=== PATIENT | female | born 1985 | race Hispanic/Latino ===

== ENCOUNTER 2018-10-19 23:50 | Emergency (ER) | payer OTHER ==
[~2018-10-19] VITALS: Ht 152.4 cm; Wt 73.0 kg
--- OUTSIDE RECORDS SUMMARY | 2018-10-19 23:54 | XMS REPORT | Summary of Care ---
Author Organization Unknown Address Unknown Phone Unavailable Encounter Dates Location Diagnoses Discharge Providers Disposition 06/14/2013 [facility] 06/18/2013 [id number] [address] Reason for Visit VAGINAL BLEEDING Vital Signs 1 2 3 Most recent to oldest [Reference Range]: 152.4 cm (06/14/2013 12:53:00 [facility] Height 98.4 DegF (06/18/2013 13:00:00 [facility]) 98.3 DegF (06/18/2013 08:00:00 [facility]) 98.0 DegF (06/18/2013 04:17:00 [facility] Temperature Oral [96.4-99.1 DegF] 116 mmHg (06/18/2013 13:00:00 [facility] 113 mmHg (06/18/2013 08:00:00 [facility] 117 mmHg (06/18/2013 04:17:00 [facility] Systolic Blood Pressure [90-140 mmHg] 76 mmHg (06/18/2013 13:00:00 [facility] 72 mmHg (06/18/2013 08:00:00 [facility] 78 mmHg (06/18/2013 04:17:00 [facility] Diastolic Blood Pressure [60-90 mmHg] 14 BRMIN (06/18/2013 13:00:00 [facility] 14 BRMIN (06/18/2013 08:00:00 [facility]) 16 BRMIN (06/18/2013 04:17:00 [facility] Respiratory Rate [14-20 BRMIN] 68 bpm (06/18/2013 13:00:00 [facility] 65 bpm (06/18/2013 08:00:00 [facility] 70 bpm (06/18/2013 04:17:00 [facility] Peripheral Pulse Rate [60-100 bpm] 78.636 kg (06/14/2013 12:53:00 [facility]) Weight 33.86 m2 (06/14/2013 12:53:00 [facility]) Body Mass Index Problem List Condition Effective Dates Status Health Status Informant Bronchitis(Confirmed 02/13/2009 Resolved ) Flu(Confirmed) 03/2013 Resolved Vaginal 06/03/2013 - Resolved delivery(Confirmed) 06/03/2013 Allergies, Adverse Reactions, Alerts Status Substance Reaction Severity Active NKDA Medications Medication Instructions Start Date Stop Date Status acetaminophen 650 mg, 2 tab, Route: PO, Drug 06/15/2013 06/15/2013 Completed form: TAB, ONCALL, Dosing Weight 78.636, kg, PRN Blood Transfusion, Premed Blood Products. Not to exceed 4grams/24hrs., Priority: Routine, Start date: 06/15/13 12:54:00, Duration: 1 doses or times, Stop date: Limited # o... Do not exceed 4 gm/day. (Same as: Tylenol) diphenhydrAMINE 25 mg, 1 tab, Route: PO, Drug form: 06/15/2013 06/15/2013 Completed TAB, ONCALL, Dosing Weight 78.636, kg, PRN Blood Transfusion, Premed Blood Products, Priority: Routine, Start date: 06/15/13 12:55:00, Duration: 1 doses or times, Stop date: Limited # of times ferrous fumarate 324 324 mg=1 tab, PO, Daily, # 90 tab, 06/18/2013 Ordered mg oral tablet 0 Refill(s) Lactated Ringers IV, 500 ml/hr, ONCE, Start date: 06/14/2013 06/15/2013 Completed Injection IV 06/14/13 23:05:00, 500 ml Lactated Ringers IV 1,000 mL, Rate: 40 ml/hr, Infuse 06/17/2013 06/18/2013 Discontinued 1,000 mL over: 25 hr, Route: IV, Dosing Weight 78.636 kg, Total Volume: 1,000, Start date: 06/17/13 8:15:00, Duration: 30 day, Stop date: 07/17/13 8:14:00 Methergine 0.2 mg/mL 0.2 mg, Route: IM, ONCE, Dosing 06/14/2013 06/14/2013 Completed injectable solution Weight 78.636, kg, Start date: 06/14/13 16:00:00, Stop date: 06/14/13 16:00:00 Methergine 0.2 mg/mL 0.2 mg, 1 mL, Route: IM, Drug form: 06/16/2013 06/16/2013 Completed injectable solution INJ, ONCE, Dosing Weight 78.636, kg, Priority: NOW, Start date: 06/16/13 0:38:00, Stop date: 06/16/13 0:38:00 (Same as:Methergine) morphine Sulfate 2 mg, Route: IVP, Drug form: INJ, 06/14/2013 06/14/2013 Completed ONCE, Dosing Weight 78.636, kg, Priority: STAT, Start date: 06/14/13 16:11:00, Stop date: 06/14/13 16:11:00 morphine Sulfate 2 mg, 1 mL, Route: IVP, Drug form: 06/14/2013 06/18/2013 Discontinued INJ, Q3H, Dosing Weight 78.636, kg, PRN Pain Score 4-6, Start date: 06/14/13 16:38:00, Duration: 30 day, Stop date: 07/14/13 16:37:00 (Same as:MORPhine Sulfate) NS (Bolus) IV 1000 1,000 mL, Rate: 1,000 ml/hr, Infuse 06/14/2013 06/14/2013 Completed mL over: 1 hr, Route: IV, Dosing Weight 78.636 kg, Total Volume: 1,000, Priority: STAT, Start date: 06/14/13 16:10:00, Duration: 1 doses or times, Stop date: 06/14/13 17:09:00, Bolus Dose Bolus Dose NS (Bolus) IV 500 mL 500 mL, Rate: 500 ml/hr, Infuse 06/14/2013 06/15/2013 Completed over: 1 hr, Route: IV, Dosing Weight 78.636 kg, Total Volume: 500, Priority: STAT, Start date: 06/14/13 23:32:00, Duration: 1 doses or times, Stop date: 06/15/13 0:31:00, Bolus Dose Bolus Dose ondansetron 4 mg, 2 mL, Route: IVP, Drug form: 06/14/2013 06/18/2013 Discontinued INJ, Q8H, Dosing Weight 78.636, kg, PRN Nausea & Vomiting, Start date: 06/14/13 16:38:00, Duration: 30 day, Stop date: 07/14/13 16:37:00 (Same as: Zofran) Saline Flush 0.9% 5 ml, Route: IVP, Drug Form: INJ, 06/14/2013 06/18/2013 Discontinued Dosing Weight 78.636, kg, PRN, PRN Line Flush, Start date: 06/14/13 16:38:00, Duration: 30 day, Stop date: 07/14/13 16:37:00 (Same as: BD Posiflush) Sodium Chloride 0.9% 250 mL, Rate: call out clerk for use with 06/14/2013 06/15/2013 Completed (titrate) 250 mL blood product administration, Dosing Weight 78.636, kg, Route: IV, Total Volume: 250, Start Date: 06/14/13 18:53:00, Duration: 1 doses or times, Stop date: 06/15/13 18:52:00, Replace Every: 24 hr Sodium Chloride 0.9% 1,000 mL, Rate: 90 ml/hr, Infuse 06/14/2013 06/18/2013 Discontinued IV 1,000 mL over: 11.1 hr, Route: IV, Dosing Weight 78.636 kg, Total Volume: 1,000, Start date: 06/14/13 16:38:00, Duration: 30 day, Stop date: 07/14/13 16:37:00 Results BLOOD BANK RESULTS 1 2 3 Most recent to oldest [Reference Range]: O NEG *Unknown* ([facility]14[facility] O NEG *Unknown* (06/14/2013 14:06:[facility] ABO/Rh Positive 1 (06/14/2013 22:03:[facility] Positive 2 (06/14/2013 14:06:[facility] Antibody Scrn Anti-D *Unknown* (06/16/2013 00:59:[facility] Non-specific IgG Antibody *Unknown* (06/16/2013 00:59:[facility] Anti-D *Unknown* (06/15/2013 07:08:00 [facility]) AB Int Product available 3 (06/17/2013 09:12:[facility] Product available (06/17/2013 09:00:00 [facility]) Product available 4 (06/15/2013 12:46:00 [facility]) RBC product 1Result Comment: 06/14/2013 23:31 [id number] notified Yazmin Flavin 06/14/2013 23:30 jw 2Result Comment: 06/14/2013 16:03 [id number] "Significant Findings called to Zuleyka Mann_at 06/14/2013 16:03__by AN__.Read Anup woodall [place]." 3Result Comment: 06/17/2013 09:53 ASBHAVSA called to surg 4Result Comment: 06/15/2013 13:21 ASBHAVSA called to latoya ELECTROLYTES 1 2 3 Most recent to oldest [Reference Range]: 140 mEq/L (06/15/2013 07:08:00 [facility]) 135 mEq/L (06/14/2013 14:06:00 [facility]) Sodium Lvl [135-145 mEq/L] 3.8 mEq/L (06/15/2013 07:08:00 [facility]) 3.9 mEq/L (06/14/2013 14:06:00 [facility]) Potassium Lvl [3.5-5.1 mEq/L] 108 mEq/L (06/15/2013 07:08:00 [facility]) 103 mEq/L (06/14/2013 14:06:00 [facility]) Chloride Lvl [95-109 mEq/L] 24 mEq/L (06/15/2013 07:08:00 [facility]) 26 mEq/L (06/14/2013 14:06:00 [facility]) CO2 [24-32 mEq/L] 11.8 mEq/L (06/15/2013 07:08:00 [facility]) 9.9 mEq/L *LOW* (06/14/2013 14:06:00 [facility]) AGAP [10.0-20.0 mEq/L] CHEM PANEL 1 2 3 Most recent to oldest [Reference Range]: 0.5 mg/dL (06/15/2013 07:08:[facility] 0.5 mg/dL (06/14/2013 14:06:[facility] Creatinine Lvl [0.5-1.4 mg/dL] 135 mL/min/1.73m2 5 *NA* (06/15/2013 07:08:00 [facility]) 135 mL/min/1.73m2 6 *NA* (06/14/2013 14:06:[facility] eGFR 7 mg/dL (06/15/2013 07:08:00 [facility]) 8 mg/dL (06/14/2013 14:06:00 [facility]) BUN [7-22 mg/dL] 14 (06/15/2013 07:08:[facility] 16 (06/14/2013 14:06:00 [facility]) B/C Ratio [6-25] 97 mg/dL 7 (06/15/2013 07:08:[facility] 86 mg/dL 8 (06/14/2013 14:06:00 [facility]) Glucose Lvl [70-99 mg/dL] 5.7 g/dL *LOW* (06/15/2013 07:08:00 [facility]) 8.0 g/dL (06/14/2013 14:06:00 [facility]) Total Protein [6.4-8.4 g/dL] 2.1 g/dL *LOW* (06/15/2013 07:08:00 [facility]) 3.1 g/dL *LOW* (06/14/2013 14:06:00 [facility]) Albumin Lvl [3.5-5.0 g/dL] 3.6 g/dL (06/15/2013 07:08:00 [facility]) 4.9 g/dL *HI* (06/14/2013 14:06:00 [facility]) Globulin [2.0-4.0 g/dL] 0.6 *LOW* (06/15/2013 07:08:00 [facility]) 0.6 *LOW* (06/14/2013 14:06:00 [facility]) A/G Ratio [0.7-1.6] 7.9 mg/dL *LOW* (06/15/2013 07:08:[facility] 9.2 mg/dL (06/14/2013 14:06:00 [facility]) Calcium Lvl [8.5-10.5 mg/dL] 14 unit/L (06/15/2013 07:08:[facility] 25 unit/L (06/14/2013 14:06:00 [facility]) ALT [0-65 unit/L] 7 unit/L (06/15/2013 07:08:00 [facility]) 13 unit/L (06/14/2013 14:06:00 [facility]) AST [0-37 unit/L] 95 unit/L (06/15/2013 07:08:00 [facility]) 147 unit/L *HI* (06/14/2013 14:06:00 [facility]) Alk Phos [39-136 unit/L] 0.3 mg/dL (06/15/2013 07:08:00 [facility]) 0.2 mg/dL (06/14/2013 14:06:00 [facility]) Bili Total [0.2-1.3 mg/dL] 5Result Comment: The eGFR is calculated using the CKD-EPI formula. In most young, healthy individuals the eGFR will be >90 mL/min/1.73m2. The eGFR declines with age. An eGFR of 60-89 may be normal in some populations, particularly the elderly, for whom the CKD-EPI formula has not been extensively validated. Use of the eGFR is not recommended in the following populations: Individuals with unstable creatinine concentrations, including patients and those with serious co-morbid conditions. Patients with extremes in muscle mass or diet. The data above are obtained from the National Kid[employer] Disease Education Program ( NKDEP) which additionally recommends that when the eGFR is used in patients with extremes of body mass index for purposes of drug dosing, the eGFR should be mul tiplied by the estimated BMI. 6Result Comment: The eGFR is calculated using the CKD-EPI formula. In most young, healthy individuals the eGFR will be >90 mL/min/1.73m2. The eGFR declines with age. An eGFR of 60-89 may be normal in some populations, particularly the elderly, for whom the CKD-EPI formula has not been extensively validated. Use of the eGFR is not recommended in the following populations: Individuals with unstable creatinine concentrations, including patients and those with serious co-morbid conditions. Patients with extremes in muscle mass or diet. The data above are obtained from the National Kidney Disease Education Program ( NKDEP) which additionally recommends that when the eGFR is used in patients with extremes of body mass index for purposes of drug dosing, the eGFR should be mul tiplied by the estimated BMI. 7Interpretive Data: Adult reference range values reflect the clinical guidelines of the [place] [employer]. 8Interpretive Data: Adult reference range values reflect the clinical guidelines of the [place] [employer]. URINE CHEM 1 2 3 Most recent to oldest [Reference Range]: Positive *ABN* (06/14/2013 20:59:09 [facility] U Preg [Negative] URINE AND STOOL 1 2 3 Most recent to oldest [Reference Range]: Marked *ABN* (06/14/2013 20:59:09 [facility]) UA Turbidity [Clear] Red *NA* (06/14/2013 20:59:09 [facility]) UA Color 6.0 (06/14/2013 20:59:09 [facility]) UA pH [5.0-8.0] 1.027 (06/14/2013 20:59:09 [facility] UA Spec Grav [<=1.030] Negative mg/dL *NA* (06/14/2013 20:59:09 [facility] UA Glucose [Negative mg/dL] Large *ABN* (06/14/2013 20:59:09 [facility] UA Blood [Negative] 20 mg/dL *ABN* (06/14/2013 20:59:09 [facility] UA Ketones [Negative mg/dL] 100 mg/dL *ABN* (06/14/2013 20:59:09 [facility] UA Protein [Negative mg/dL] <=1.0 mg/dL *NA* (06/14/2013 20:59:09 [facility] UA Urobilinogen [0.1-1.0 mg/dL] Negative *NA* (06/14/2013 20:59:09 [facility] UA Bili [Negative] Negative (06/14/2013 20:59:09 [facility] UA Leuk Est [Negative] Negative (06/14/2013 20:59:09 [facility] UA Nitrite [Negative] 149 /HPF *HI* (06/14/2013 [facility]:59:[facility] UA WBC [0-5 /HPF] >182 /HPF *HI* (06/14/2013 [facility]:59:[facility] UA RBC [0-2 /HPF] None Seen *NA* (06/14/2013 20:59:09 [facility]) UA Sq Epi Few /LPF *NA* (06/14/2013 20:59:09 [facility]) UA Mucus [None Seen /LPF] HEMATOLOGY 1 2 3 Most recent to oldest [Reference Range]: 5.6 K/CMM (06/18/2013 06:30:00 [facility] 7.5 K/CMM (06/16/2013 12:19:00 [facility]) 9.2 K/CMM (06/16/2013 03:29:00 [facility]) WBC [3.7-10.4 K/CMM] 3.40 M/CMM *LOW* (06/18/2013 06:30:00 [facility]) 2.56 M/CMM *LOW* (06/16/2013 12:19:00 [facility]) 2.82 M/CMM *LOW* (06/16/2013 03:29:00 [facility]) RBC [4.20-5.40 M/CMM] 10.1 g/dL *LOW* (06/18/2013 06:30:00 [facility]) 7.5 g/dL *LOW* (06/16/2013 12:19:00 [facility]) 8.4 g/dL *LOW* (06/16/2013 03:29:00 [facility]) Hgb [12.0-16.0 g/dL] 28.8 % *LOW* (06/18/2013 06:30:00 [facility]) 21.8 % *LOW* (06/16/2013 12:19:00 [facility]) 24.2 % *LOW* (06/16/2013 03:29:00 [facility]) Hct [36.0-48.0 %] 84.8 fL (06/18/2013 06:30:00 [facility]) 85.3 fL (06/16/2013 12:19:00 [facility]) 85.8 fL (06/16/2013 03:29:00 [facility]) MCV [81.0-99.0 fL] 29.6 pg (06/18/2013 06:30:[facility] 29.5 pg (06/16/2013 12:19:[facility] 29.7 pg (06/16/2013 03:29:[facility] MCH [27.0-31.0 pg] 34.9 g/dL (06/18/2013 06:30:[facility] 34.5 g/dL (06/16/2013 12:19:[facility] 34.6 g/dL (06/16/2013 03:29:[facility] MCHC [32.0-36.0 g/dL] 15.4 % *HI* (06/18/2013 06:30:[facility] 15.5 % *HI* (06/16/2013 12:19:00 [facility]) 15.9 % *HI* (06/16/2013 03:29:00 [facility]) RDW [11.5-14.5 %] 340 K/CMM (06/18/2013 06:30:00 [facility] 404 K/CMM (06/16/2013 12:19:00 [facility]) 368 K/CMM (06/16/2013 03:29:00 [facility]) Platelet [133-450 K/CMM] 6.7 fL *LOW* (06/18/2013 [facility]:30:[facility] 6.4 fL *LOW* (06/16/2013 12:19:00 [facility]) 6.8 fL *LOW* (06/16/2013 03:29:00 [facility]) MPV [7.4-10.4 fL] 56.5 % (06/18/2013 06:30:[facility] 70.6 % (06/16/2013 12:19:[facility] 67.7 % (06/16/2013 03:29:[facility] Segs [45.0-75.0 %] 33.3 % (06/18/2013 06:30:[facility] 23.7 % (06/16/2013 [facility] 26.3 % (06/16/2013 03:29:00 [facility]) Lymphocytes [20.0-40.0 %] 5.2 % (06/18/2013 06:30:00 [facility] 4.2 % (06/16/2013 12:19:00 [facility] 4.3 % (06/16/2013 03:29:00 [facility] Monocytes [2.0-12.0 %] 3.9 % (06/18/2013 06:30:00 [facility] 1.1 % (06/16/2013 12:19:00 [facility] 1.2 % (06/16/2013 03:29:00 [facility] Eosinophils [0.0-4.0 %] 1.1 % *HI* (06/18/2013 06:30:00 [facility] 0.4 % (06/16/2013 12:19:00 [facility] 0.5 % (06/16/2013 03:29:00 [facility] Basophils [0.0-1.0 %] 3.1 K/CMM (06/18/2013 06:30:00 [facility] 5.3 K/CMM (06/16/2013 12:19:00 [facility] 6.2 K/CMM (06/16/2013 03:29:00 [facility] Segs-Bands # [1.5-8.1 K/CMM] 1.8 K/CMM (06/18/2013 06:30:00 [facility] 1.8 K/CMM (06/16/2013 12:19:00 [facility] 2.4 K/CMM (06/16/2013 03:29:00 [facility] Lymphocytes # [1.0-5.5 K/CMM] 0.3 K/CMM (06/18/2013 06:30:00 [facility] 0.3 K/CMM (06/16/2013 12:19:00 [facility] 0.4 K/CMM (06/16/2013 03:29:00 [facility] Monocytes # [0.0-0.8 K/CMM] 0.2 K/CMM (06/18/2013 06:30:00 [facility] 0.1 K/CMM (06/16/2013 12:19:00 [facility] 0.1 K/CMM (06/16/2013 [facility] Eosinophils # [0.0-0.5 K/CMM] 0.1 K/CMM (06/18/2013 06:30:00 [facility] 0.0 K/CMM (06/16/2013 [facility] 0.0 K/CMM (06/16/2013 03:29:00 [facility]) Basophils # [0.0-0.2 K/CMM] Medications Administered During Your Visit No data available for this section Immunizations No data available for this section Social History Social History Type Response Alcohol Type Wine. Frequency: 1-2 times per month. Smoking Status Use: Never smoker. Tobacco smoke exposure: None. Did the Patient Smoke Cigarettes Anytime During the Last 365 Days? No. Cessation Counseling Provided? No. Assessment and Plan Extracted from: Title: Discharge Summary * Author: Yohannes Steele Date: 06/18/2013 Discharge Plan Discharge Summary Plan Discharge Status: improved. Discharge instructions given: to patient. Discharge disposition: discharge to home. Prescriptions: written and given to patient. Course Improving. Education and Follow-up Counseled: patient, family. Extracted from: Title: Progress Note * Author: Yohannes Steele Date: 06/18/2013 Impression and Plan Course: Improving. Education and Follow-up: Counseled: Patient, Family. Discharge Planning: Plan to discharge ( To home ). Ready for D/C: Yes. Extracted from: Title: OB Admission H&P L&D/ PreOp Author: Yohannes Steele Date: 06/14/2013 * Impression and Plan Delayed post hemmorhage secondary to Retained products of contraception. Products evacuated successfully and pt stabilized. Pt with acute anaemia and low H&H and expected further drop based on presentation and history of bleeding prior to presentation. Blood transfusion ordered. Pt hemodynamically stable. Will admit for observation and transfusion.
--- OUTSIDE RECORDS SUMMARY | 2018-10-19 23:54 | XMS REPORT | Continuity of Care Document ---
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 forms of venous thrombosis are not ruled out. However,the melting curve analysis may implicate the presence of possible rare mutations at positions 1689, 1692 and 1696. (Further testing will be recommended in the report). A minimum detection level is 202 copies of Factor V Leiden per reaction. The level of agreement between the Factor V Leiden Kit and sequence analysis was 99.4%. The test result must be interpreted along with the patient's clinical history and relevant laboratory data. This assay has been validated by [facility]. 09/03/2017 [facility] Protein S Func 147 54 - 137 09/03/2017 [facility] Homocyst Tot 6.4 3.7 - 13.9 09/03/2017 [facility] Cardiolipin IgG 2.5 <=19.9 GPL 09/03/2017 [facility] Cardiolipin IgA 2.1 <=19.9 APL 09/03/2017 [facility] Cardiolipin IgM 6.2 <=19.9 MPL 09/03/2017 [facility] JERRY Negative (09/03/17 1:30 PM) Negative 09/03/2017 [facility] IMMUNOLOGY Beta2-Glycoprotein IgG 9.3 <=19.9 unit/mL 09/03/2017 [facility] IMMUNOLOGY Beta2-Glycoprotein IgA 0.8 <=19.9 unit/mL 09/03/2017 [facility] IMMUNOLOGY Beta2-Glycoprotein IgM 0.3 <=19.9 unit/mL 09/03/2017 [facility] SPECIAL CHEMISTRY Hgb A1C 5.4 <=5.6 % 09/03/2017 [facility] CARDIAC ENZYMES Troponin-I <0.02 0.00 - 0.40 09/03/2017 [facility] CARDIAC ENZYMES Total CK 154 12 - 191 09/03/2017 [facility] ELECTROLYTES AGAP 13.7 10.0 - 20.0 09/03/2017 [facility] ELECTROLYTES eGFR 129 09/03/2017 Result Comment: The eGFR is calculated using the [...] from the National Kidney Disease Education Program (NKDEP) which additionally recommends that when the eGFR is used in patients with extremes of body mass index for purposes of drug dosing, the eGFR should be multiplied by the estimated BMI. [facility] ELECTROLYTES Glucose Lvl 89 70 - 99 09/03/2017 [facility] ELECTROLYTES Sodium Lvl 140 135 - 145 09/03/2017 [facility] ELECTROLYTES BUN 9 7 - 22 09/03/2017 [facility] ELECTROLYTES Creatinine Lvl 0.51 0.50 - 1.40 09/03/2017 [facility] ELECTROLYTES CO2 26 24 - 32 09/03/2017 [facility] ELECTROLYTES Chloride Lvl 104 95 - 109 09/03/2017 [facility] ELECTROLYTES Potassium Lvl 3.7 3.5 - 5.1 09/03/2017 [facility] ELECTROLYTES Calcium Lvl 9.0 8.5 - 10.5 09/03/2017 [facility] HEMATOLOGY PTT 34.1 22.9 - 35.8 09/03/2017 [facility] HEMATOLOGY INR 1.03 0.85 - 1.17 09/03/2017 [facility] HEMATOLOGY PT 13.5 12.0 - 14.7 09/03/2017 [facility] MPV 9.1 7.4 - 10.4 09/03/2017 [facility] MCV 91.5 80.0 - 98.0 09/03/2017 [facility] RDW 12.9 11.5 - 14.5 09/03/2017 [facility] Platelet 296 133 - 450 09/03/2017 [facility] MCH 30.9 27.0 - 31.0 09/03/2017 [facility] MCHC 33.7 32.0 - 36.0 09/03/2017 [facility] Hct 42.0 36.0 - 48.0 09/03/2017 [facility] RBC 4.59 4.20 - 5.40 09/03/2017 [facility] Hgb 14.2 12.0 - 16.0 09/03/2017 [facility] WBC 5.4 3.7 - 10.4 09/03/2017 [facility] HEMATOLOGY Eosinophils 1.5 0.0 - 4.0 09/03/2017 [facility] HEMATOLOGY Basophils 1.4 0.0 - 1.0 09/03/2017 [facility] Lymphocytes 35.5 20.0 - 40.0 09/03/2017 [facility] Monocytes 6.7 2.0 - 12.0 09/03/2017 [facility] Segs-Bands # 3.0 1.5 - 8.1 09/03/2017 [facility] Segs 54.9 45.0 - 75.0 09/03/2017 [facility] Basophils # 0.1 0.0 - 0.2 09/03/2017 [facility] HEMATOLOGY Eosinophils # 0.1 0.0 - 0.5 09/03/2017 [facility] HEMATOLOGY Monocytes # 0.4 0.0 - 0.8 09/03/2017 [facility] Lymphocytes # 1.9 1.0 - 5.5 09/03/2017 [facility] URINE AND STOOL UA CaOx Lisa Few /HPF None Seen /HPF 08/04/2014 [facility] URINE AND STOOL UA Mucus Few /LPF None Seen /LPF 08/04/2014 [facility] URINE AND STOOL UA Bacteria Occasional /HPF None Seen /HPF 08/04/2014 [facility] URINE AND STOOL UA RBC 1 0 - 2 08/04/2014 [facility] URINE AND STOOL UA WBC 35 0 - 5 08/04/2014 [facility] URINE AND STOOL UA Sq Epi Many /LPF Few /LPF 08/04/2014 [facility] URINE AND STOOL UA Leuk Est Trace *ABN* (08/03/14 11:57 PM) Negative 08/04/2014 [facility] URINE AND STOOL UA Nitrite Negative (08/03/14 11:57 PM) Negative 08/04/2014 [facility] URINE AND STOOL UA pH 5.5 5.0 - 8.0 08/04/2014 [facility] URINE AND STOOL UA Protein 100 mg/dL Negative mg/dL 08/04/2014 [facility] URINE AND STOOL UA Turbidity Slight Cloudy (08/03/14 11:57 PM) Clear 08/04/2014 [facility] URINE AND STOOL UA Color Yellow *NA* (08/03/14 11:57 PM) Yellow 08/04/2014 [facility] URINE AND STOOL UA Spec Grav >=1.030 *ABN* (08/03/14 11:57 PM) <=1.030 08/04/2014 [facility] URINE AND STOOL UA Glucose Negative (08/03/14 11:57 PM) Negative 08/04/2014 [facility] URINE AND STOOL UA Bili Small *ABN* (08/03/14 11:57 PM) Negative 08/04/2014 [facility] URINE AND STOOL UA Urobilinogen 1.0 0.1 - 1.0 08/04/2014 [facility] URINE AND STOOL UA Blood Large *ABN* (08/03/14 11:57 PM) Negative 08/04/2014 [facility] URINE AND STOOL UA Ketones Trace *ABN* (08/03/14 11:57 PM) Negative 08/04/2014 [facility] URINE CHEM U Preg Negative (08/03/14 11:57 PM) Negative 08/04/2014 [facility] HEMATOLOGY RDW 15.4 11.5 - 14.5 06/18/2013 [facility] HEMATOLOGY Platelet 340 133 - 450 06/18/2013 [facility] HEMATOLOGY MPV 6.7 7.4 - 10.4 06/18/2013 [facility] HEMATOLOGY MCH 29.6 27.0 - 31.0 06/18/2013 [facility] HEMATOLOGY MCHC 34.9 32.0 - 36.0 06/18/2013 [facility] HEMATOLOGY MCV 84.8 81.0 - 99.0 06/18/2013 [facility] HEMATOLOGY RBC X 10x6 3.40 4.20 - 5.40 06/18/2013 [facility] Hgb 10.1 12.0 - 16.0 06/18/2013 [facility] HEMATOLOGY Hct 28.8 36.0 - 48.0 06/18/2013 [facility] WBC X 10x3 5.6 3.7 - 10.4 06/18/2013 [facility] HEMATOLOGY Basophils # 0.1 0.0 - 0.2 06/18/2013 [facility] HEMATOLOGY Eosinophils # 0.2 0.0 - 0.5 06/18/2013 [facility] HEMATOLOGY Monocytes # 0.3 0.0 - 0.8 06/18/2013 [facility] Lymphocytes # 1.8 1.0 - 5.5 06/18/2013 [facility] Segs-Bands # 3.1 1.5 - 8.1 06/18/2013 [facility] Basophils 1.1 0.0 - 1.0 06/18/2013 [facility] HEMATOLOGY Eosinophils 3.9 0.0 - 4.0 06/18/2013 [facility] Monocytes 5.2 2.0 - 12.0 06/18/2013 [facility] Lymphocytes 33.3 20.0 - 40.0 06/18/2013 [facility] Segs 56.5 45.0 - 75.0 06/18/2013 [facility] BLOOD BANK RESULTS RBC product Product available 3 (06/17/2013 09:12:00 Michelle/[place]) 06/17/2013 <sup>3</sup>Result Comment: 06/17/2013 09:53 HARESHA
called to surg [facility] BLOOD BANK RESULTS RBC product Product available (06/17/2013 09:00:00 Michelle/[place]) 06/17/2013 [facility] HEMATOLOGY Segs 70.6 45.0 - 75.0 06/16/2013 [facility] Basophils # 0.0 0.0 - 0.2 06/16/2013 [facility] Eosinophils # 0.1 0.0 - 0.5 06/16/2013 [facility] Monocytes # 0.3 0.0 - 0.8 06/16/2013 [facility] Lymphocytes # 1.8 1.0 - 5.5 06/16/2013 [facility] HEMATOLOGY Segs-Bands # 5.3 1.5 - 8.1 06/16/2013 [facility] HEMATOLOGY Basophils 0.4 0.0 - 1.0 06/16/2013 [facility] HEMATOLOGY Eosinophils 1.1 0.0 - 4.0 06/16/2013 [facility] HEMATOLOGY Lymphocytes 23.7 20.0 - 40.0 06/16/2013 [facility] HEMATOLOGY Monocytes 4.2 2.0 - 12.0 06/16/2013 [facility] HEMATOLOGY WBC X 10x3 7.5 3.7 - 10.4 06/16/2013 [facility] HEMATOLOGY MPV 6.4 7.4 - 10.4 06/16/2013 [facility] HEMATOLOGY Platelet 404 133 - 450 06/16/2013 [facility] HEMATOLOGY RDW 15.5 11.5 - 14.5 06/16/2013 [facility] HEMATOLOGY MCHC 34.5 32.0 - 36.0 06/16/2013 [facility] HEMATOLOGY MCH 29.5 27.0 - 31.0 06/16/2013 [facility] HEMATOLOGY MCV 85.3 81.0 - 99.0 06/16/2013 [facility] HEMATOLOGY Hct 21.8 36.0 - 48.0 06/16/2013 [facility] HEMATOLOGY Hgb 7.5 12.0 - 16.0 06/16/2013 [facility] HEMATOLOGY RBC X 10x6 2.56 4.20 - 5.40 06/16/2013 [facility] HEMATOLOGY Lymphocytes # 2.4 1.0 - 5.5 06/16/2013 [facility] HEMATOLOGY Segs-Bands # 6.2 1.5 - 8.1 06/16/2013 [facility] HEMATOLOGY Basophils # 0.0 0.0 - 0.2 06/16/2013 [facility] HEMATOLOGY Eosinophils # 0.1 0.0 - 0.5 06/16/2013 [facility] HEMATOLOGY Monocytes # 0.4 0.0 - 0.8 06/16/2013 [facility] HEMATOLOGY Basophils 0.5 0.0 - 1.0 06/16/2013 [facility] HEMATOLOGY Eosinophils 1.2 0.0 - 4.0 06/16/2013 [facility] HEMATOLOGY Monocytes 4.3 2.0 - 12.0 06/16/2013 [facility] HEMATOLOGY Lymphocytes 26.3 20.0 - 40.0 06/16/2013 [facility] HEMATOLOGY Segs 67.7 45.0 - 75.0 06/16/2013 [facility] HEMATOLOGY MCV 85.8 81.0 - 99.0 06/16/2013 [facility] HEMATOLOGY MCH 29.7 27.0 - 31.0 06/16/2013 [facility] HEMATOLOGY Hct 24.2 36.0 - 48.0 06/16/2013 [facility] HEMATOLOGY Platelet 368 133 - 450 06/16/2013 [facility] HEMATOLOGY RDW 15.9 11.5 - 14.5 06/16/2013 [facility] HEMATOLOGY MCHC 34.6 32.0 - 36.0 06/16/2013 [facility] HEMATOLOGY MPV 6.8 7.4 - 10.4 06/16/2013 [facility] HEMATOLOGY RBC X 10x6 2.82 4.20 - 5.40 06/16/2013 [facility] HEMATOLOGY Hgb 8.4 12.0 - 16.0 06/16/2013 [facility] HEMATOLOGY WBC X 10x3 9.2 3.7 - 10.4 06/16/2013 [facility] BLOOD BANK RESULTS AB Int Anti-D 06/16/2013 [facility] BLOOD BANK RESULTS AB Int Non-specific IgG Antibody 06/16/2013 [facility] BLOOD BANK RESULTS RBC product Product available 4 (06/15/2013 12:46:00 Michelle/[place]) 06/15/2013 <sup>4</sup>Result Comment: 06/15/2013 13:21 ASBHAVSA
called to latoya [facility] BLOOD BANK RESULTS AB Int Anti-D 06/15/2013 [facility] ELECTROLYTES AGAP 11.8 10.0 - 20.0 06/15/2013 [facility] ELECTROLYTES Calcium Lvl 7.9 8.5 - 10.5 06/15/2013 [facility] ELECTROLYTES CO2 24 24 - 32 06/15/2013 [facility] ELECTROLYTES B/C Ratio 14 6 - 25 06/15/2013 [facility] ELECTROLYTES ASPARTATE TRANSAMINASE 7 0 - 37 06/15/2013 [facility] ELECTROLYTES Bili Total 0.3 0.2 - 1.3 06/15/2013 [facility] ELECTROLYTES ALANINE AMINOTRANSFERASE 14 0 - 65 06/15/2013 [facility] ELECTROLYTES Alk Phos 95 39 - 136 06/15/2013 [facility] ELECTROLYTES A/G Ratio 0.6 0.7 - 1.6 06/15/2013 [facility] ELECTROLYTES Total Protein 5.7 6.4 - 8.4 06/15/2013 [facility] ELECTROLYTES Albumin Lvl 2.1 3.5 - 5.0 06/15/2013 [facility] ELECTROLYTES Globulin 3.6 2.0 - 4.0 06/15/2013 [facility] ELECTROLYTES Chloride Lvl 108 95 - 109 06/15/2013 [facility] ELECTROLYTES Potassium Lvl 3.8 3.5 - 5.1 06/15/2013 [facility] ELECTROLYTES Sodium Lvl 140 135 - 145 06/15/2013 [facility] ELECTROLYTES Creatinine Lvl 0.5 0.5 - 1.4 06/15/2013 [facility] ELECTROLYTES BUN 7 7 - 22 06/15/2013 [facility] ELECTROLYTES Glucose Lvl 97 70 - 99 06/15/2013 <sup>7</sup>Interpretive Data: Adult reference range values reflect the clinical guidelines
of the [place] [employer]. [facility] ELECTROLYTES eGFR 135 06/15/2013 <sup>5</sup>Result Comment: The eGFR is calculated using the CKD-EPI formula. In most young, healthy individuals the eGFR will be >90 mL/min/1.73m2. The eGFR declines with age. An eGFR of 60-89 may be normal in some populations, particularly the elderly, for whom the CKD-EPI formula has not been extensively validated. Use of the eGFR is not recommended in the following populations:& lt;br/>
Individuals with unstable creatinine concentrations, including patients and those with serious co-morbid conditions.

Patients with extremes in muscle mass or diet.

The data above are obtained from the National Kidney Disease Education Program (NKDEP) which additionally recommends that when the eGFR is used in patients with extremes of body mass index for purposes of drug dosing, the eGFR should be multiplied by the estimated BMI. [facility] BLOOD [facility] RESULTS Antibody Scrn Positive 1 (06/14/2013 22:03:00 Michelle/[place]) 06/15/2013 <sup>1</sup>Result Comment: 06/14/2013 23:31 [id number]
notified Yazmin Perez 06/14/2013 23:30 jw [facility] BLOOD BANK RESULTS ABO/Rh O NEG 06/15/2013 [facility] URINE AND STOOL UA Urobilinogen <=1.0 mg/dL 0.1 - 1.0 06/15/2013 [facility] URINE AND STOOL UA Color Red 06/15/2013 [facility] URINE AND STOOL UA Sq Epi None Seen 06/15/2013 [facility] URINE AND STOOL UA WBC 149 0 - 5 06/15/2013 [facility] URINE AND STOOL UA Leuk Est Negative (06/14/2013 20:59:09 Michelle/[place]) Negative 06/15/2013 [facility] URINE AND STOOL UA Mucus Few /LPF None Seen /LPF 06/15/2013 [facility] URINE AND STOOL UA RBC >182 0 - 2 06/15/2013 [facility] URINE AND STOOL UA Bili Negative *NA* (06/14/2013 20:59:09 Michelle/[place]) Negative 06/15/2013 [facility] URINE AND STOOL UA Spec Grav 1.027 <=1.030 06/15/2013 [facility] URINE AND STOOL UA Turbidity Marked *ABN* (06/14/2013 20:59:09 Michelle/[place]) Clear 06/15/2013 [facility] URINE AND STOOL UA Nitrite Negative (06/14/2013 20:59:09 Michelle/[place]) Negative 06/15/2013 [facility] URINE AND STOOL UA Blood Large *ABN* (06/14/2013 20:59:09 [facility]/[place]) Negative 06/15/2013 [facility] URINE AND STOOL UA pH 6.0 5.0 - 8.0 06/15/2013 [facility] URINE AND STOOL UA Ketones 20 mg/dL Negative mg/dL 06/15/2013 [facility] URINE AND STOOL UA Glucose Negative mg/dL Negative mg/dL 06/15/2013 [facility] URINE AND STOOL UA Protein 100 mg/dL Negative mg/dL 06/15/2013 [facility] URINE CHEM U Preg Positive *ABN* (06/14/2013 20:59:09 [facility]/[place]) Negative 06/15/2013 [facility] BLOOD [facility] RESULTS Antibody Scrn Positive 2 (06/14/2013 14:06:00 [facility]/[place]) 06/14/2013 <sup>2</sup>Result Comment: 06/14/2013 16:03 [id number]
"Significant Findings called to Zuleyka Mann_at 06/14/2013 16:03__by AN__.Read Back OK." [facility] BLOOD BANK RESULTS ABO/Rh O NEG 06/14/2013 [facility] CHEM PANEL eGFR 135 06/14/2013 <sup>6</sup>Result Comment: The eGFR is calculated using the CKD-EPI formula. In most young, healthy individuals the eGFR will be >90 mL/min/1.73m2. The eGFR declines with age. An eGFR of 60-89 may be normal in some populations, particularly the elderly, for whom the CKD-EPI formula has not been extensively validated. Use of the eGFR is not recommended in the following populations:& lt;br/>
Individuals with unstable creatinine concentrations, including patients and those with serious co-morbid conditions.

Patients with extremes in muscle mass or diet.

The data above are obtained from the National Kidney Disease Education Program (NKDEP) which additionally recommends that when the eGFR is used in patients with extremes of body mass index for purposes of drug dosing, the eGFR should be multiplied by the estimated BMI. [facility] CHEM PANEL ASPARTATE TRANSAMINASE 13 0 - 37 06/14/2013 [facility] CHEM PANEL Bili Total 0.2 0.2 - 1.3 06/14/2013 [facility] CHEM PANEL Sodium Lvl 135 135 - 145 06/14/2013 [facility] CHEM PANEL Potassium Lvl 3.9 3.5 - 5.1 06/14/2013 [facility] CHEM PANEL BUN 8 7 - 22 06/14/2013 [facility] CHEM PANEL Creatinine Lvl 0.5 0.5 - 1.4 06/14/2013 [facility] CHEM PANEL Calcium Lvl 9.2 8.5 - 10.5 06/14/2013 [facility] CHEM PANEL Total Protein 8.0 6.4 - 8.4 06/14/2013 [facility] CHEM PANEL CO2 26 24 - 32 06/14/2013 [facility] CHEM PANEL Chloride Lvl 103 95 - 109 06/14/2013 [facility] CHEM PANEL Alk Phos 147 39 - 136 06/14/2013 [facility] CHEM PANEL Albumin Lvl 3.1 3.5 - 5.0 06/14/2013 [facility] CHEM PANEL ALANINE AMINOTRANSFERASE 25 0 - 65 06/14/2013 [facility] CHEM PANEL Glucose Lvl 86 70 - 99 06/14/2013 <sup>8</sup>Interpretive Data: Adult reference range values reflect the clinical guidelines
of the [place] [employer]. [facility] CHEM PANEL Globulin 4.9 2.0 - 4.0 06/14/2013 [facility] CHEM PANEL B/C Ratio 16 6 - 25 06/14/2013 [facility] CHEM PANEL AGAP 9.9 10.0 - 20.0 06/14/2013 [facility] CHEM PANEL A/G Ratio 0.6 0.7 - 1.6 06/14/2013 [facility] BLOOD BANK RESULTS ABO/Rh O NEG 05/11/2013 [facility] BLOOD BANK RESULTS Antibody Scrn Positive (05/10/2013 20:26:00) 05/11/2013 Normal [facility] CHEM PANEL Creatinine Lvl 0.5 0.5 - 1.4 05/11/2013 Normal [facility] CHEM PANEL eGFR 135 05/11/2013 <sup>1</sup>Result Comment: The eGFR is calculated using the CKD-EPI formula. In most young, healthy individuals the eGFR will be >90 mL/min/1.73m2. The eGFR declines with age. An eGFR of 60-89 may be normal in some populations, particularly the elderly, for whom the CKD-EPI formula has not been extensively validated. Use of the eGFR is not recommended in the following populations:& lt;br/>
Individuals with unstable creatinine concentrations, including patients and those with serious co-morbid conditions.

Patients with extremes in muscle mass or diet.

The data above are obtained from the National Kidney Disease Education Program (NKDEP) which additionally recommends that when the eGFR is used in patients with extremes of body mass index for purposes of drug dosing, the eGFR should be multiplied by the estimated BMI. [facility] URINE CHEM U24 Cr Clear 144 88 - 128 05/10/2013 [facility] URINE CHEM WT Crcl 161 05/10/2013 [facility] URINE CHEM HT Crcl 62 05/10/2013 [facility] URINE CHEM TV CrCl 24H 2971 600 - 1600 05/10/2013 [facility] URINE CHEM BSA Cr Clear 1.74 05/10/2013 [facility] URINE CHEM Ur Creat 35.0 05/10/2013 <sup>5</sup>Interpretive Data: No established reference ranges. [facility] URINE CHEM Ur Protein 14.3 <=11.8 05/10/2013 [facility] URINE CHEM U Prot 24Hrs Col 24 (05/09/2013 18:49:00) 05/10/2013 Normal [facility] URINE CHEM U24 Protein 425 <=148 05/10/2013 [facility] <sup>3</sup>Interpretive Data: Reference value applies to 24-hour collection. Specimens collected for periods other than 24 hours will be reported in concentration units. Urinary protein levels may rise to 300 mg/24 hours in healthy individuals after vigorous exercise. Increased urine protein levels (false-positives) may be due to contamination of urine with menstrual blood, prostratic secretions, or semen. [facility] URINE CHEM TV Protein (ml) 2971 600 - 1600 05/10/2013 [facility] URINE CHEM Ur Protein 28.4 <=11.8 05/08/2013 [facility] URINE CHEM U Prot 24Hrs Col 24 (05/07/2013 22:30:00) 05/08/2013 Normal [facility] URINE CHEM U24 Protein 760 <=148 05/08/2013 [place] <sup>4</sup>Interpretive Data: Reference value applies to 24-hour collection. Specimens collected for periods other than 24 hours will be reported in concentration units. Urinary protein levels may rise to 300 mg/24 hours in healthy individuals after vigorous exercise. Increased urine protein levels (false-positives) may be due to contamination of urine with menstrual blood, prostratic secretions, or semen. [facility] URINE CHEM TV Protein (ml) 2676 600 - 1600 05/08/2013 [facility] URINE CHEM Ur Creat 35.7 05/08/2013 <sup>6</sup>Interpretive Data: No established reference ranges. [facility] URINE CHEM TV CrCl 24H 2676 600 - 1600 05/08/2013 [facility] URINE CHEM U24 Cr Clear 119 88 - 128 05/08/2013 Normal [facility] URINE CHEM BSA Cr Clear 2.41 05/08/2013 [facility] URINE CHEM WT Crcl 73 05/08/2013 [facility] URINE CHEM HT Crcl 155 05/08/2013 [facility] HEMATOLOGY PROTIME 12.1 12.0 - 14.7 05/07/2013 Normal [facility] HEMATOLOGY INR 0.90 0.85 - 1.17 05/07/2013 Normal <sup>8</sup>Interpretive Data: RECOMMENDED RANGES FOR PROTIME INR:
2.0-3.0 for most medical and surgical thromboembolic states.
2.5-3.5 for artificial heart valves and recurrent embolism.

INR SHOULD BE USED ONLY FOR PATIENTS ON STABLE ANTICOAGULANT THERAPY. [facility] HEMATOLOGY aPTT 24.1 22.9 - 35.8 05/07/2013 Normal <sup>10</sup>Interpretive Data: Heparin Therapeutic Range: 57 - 92 Seconds [facility] HEMATOLOGY Thrombin Time 14.9 15.0 - 21.2 05/07/2013 LOW [facility] HEMATOLOGY D-Dimer 1.29 05/07/2013 <sup>9</sup>Interpretive Data: In DIC, quantitative D-Dimer is generally greater than
0.66 ug/mL FEU. Values of quantitative D-Dimer less than
0.40 ug/mL FEU have been reported to be associated with a low
probability of deep vein thrombosis/pulmonary embolism.
This test alone should not be used to rule out DVT/PE. [facility] HEMATOLOGY Fibrinogen Lvl 590 230 - 510 05/07/2013 [facility] BLOOD BANK RESULTS Path AB This 27-year-old woman whose blood type is A Rh-negative received Rh Immune Globulin at 28 weeks (patient currently at 33 weeks) for prophylaxis of hemolytic disease of the fetus/ (HDF/N). Current immunohematologic testing shows the presence of an anti-D reactivity in this her plasma. The autocontrol is negative. The anti-D antibody is directed against the D antigen of the "Rh" blood group system and is typically IgG in nature. Although usually considered clinically significant, the anti-D reactivity detected in the plasma of this woman is due to passive immunization with Rh Immune Globulin. Should RBC transfusion be required, Rh-negative crossmatch-compatible units will be issued. No difficulty in obtaining compatible blood is expected. The patient’s electronic medical record has been reviewed for relevant information. I have reviewed the test results and concur with the resident's interpretation. CPT: 54436-MO 05/07/2013 [facility] BLOOD BANK RESULTS Antibody Scrn Positive 7 (05/06/2013 22:40:00) 05/07/2013 Normal <sup>7</sup>Result Comment: 05/07/2013 00:19 [id number]
"Significant Findings called to José MACKEY at 0018 by KEVIN.Read Back OK."

05/07/2013 00:16 [id number]
Patient has unexpected antibodies. Allow extra time for additional crossmatches. [facility] BLOOD BANK RESULTS ABO/Rh O NEG 05/07/2013 [facility] BLOOD BANK RESULTS AB Int Anti-D 05/07/2013 [facility] CHEM PANEL LACTATE DEHYDROGENASE 284 98 - 192 05/07/2013 HI [facility] CHEM PANEL Uric Acid 3.5 2.5 - 7.0 05/07/2013 Normal [facility] CHEM PANEL eGFR 145 05/07/2013 <sup>2</sup>Result Comment: The eGFR is calculated using the CKD-EPI formula. In most young, healthy individuals the eGFR will be >90 mL/min/1.73m2. The eGFR declines with age. An eGFR of 60-89 may be normal in some populations, particularly the elderly, for whom the CKD-EPI formula has not been extensively validated. Use of the eGFR is not recommended in the following populations:& lt;br/>
Individuals with unstable creatinine concentrations, including patients and those with serious co-morbid conditions.

Patients with extremes in muscle mass or diet.

The data above are obtained from the National Kidney Disease Education Program (NKDEP) which additionally recommends that when the eGFR is used in patients with extremes of body mass index for purposes of drug dosing, the eGFR should be multiplied by the estimated BMI. [facility] CHEM PANEL Creatinine Lvl 0.4 0.5 - 1.4 05/07/2013 LOW [facility] CHEM PANEL ALANINE AMINOTRANSFERASE 34 0 - 65 05/07/2013 Normal [facility] CHEM PANEL ASPARTATE TRANSAMINASE 33 0 - 37 05/07/2013 Normal [facility] HEMATOLOGY Monocytes # 0.5 0.0 - 0.8 05/07/2013 Normal [facility] HEMATOLOGY Lymphocytes # 2.5 1.0 - 5.5 05/07/2013 Normal [facility] HEMATOLOGY Segs-Bands # 5.4 1.5 - 8.1 05/07/2013 Normal [facility] HEMATOLOGY Basophils 0.4 0.0 - 1.0 05/07/2013 Normal [facility] HEMATOLOGY Eosinophils 0.7 0.0 - 4.0 05/07/2013 Normal [facility] HEMATOLOGY Eosinophils # 0.1 0.0 - 0.5 05/07/2013 Normal [facility] HEMATOLOGY Segs 63.2 45.0 - 75.0 05/07/2013 Normal [facility] HEMATOLOGY Monocytes 6.1 2.0 - 12.0 05/07/2013 Normal [facility] HEMATOLOGY Lymphocytes 29.6 20.0 - 40.0 05/07/2013 Normal [facility] HEMATOLOGY Platelet 270 133 - 450 05/07/2013 Normal [facility] HEMATOLOGY MCHC 33.3 32.0 - 36.0 05/07/2013 Normal [facility] HEMATOLOGY RDW 14.6 11.5 - 14.5 05/07/2013 HI [facility] HEMATOLOGY MCV 87.6 81.0 - 99.0 05/07/2013 Normal [facility] HEMATOLOGY MCH 29.2 27.0 - 31.0 05/07/2013 Normal [facility] HEMATOLOGY Hgb 12.3 12.0 - 16.0 05/07/2013 Normal [facility] HEMATOLOGY Hct 37.0 36.0 - 48.0 05/07/2013 Normal [facility] HEMATOLOGY MPV 8.9 7.4 - 10.4 05/07/2013 Normal [facility] HEMATOLOGY RBC X 10x6 4.22 4.20 - 5.40 05/07/2013 Normal [facility] HEMATOLOGY WBC X 10x3 8.5 3.7 - 10.4 05/07/2013 Normal [facility] IMMUNOLOGY Hep Bs Ag Negative *NA* (05/06/2013 22:08:44) Negative 05/07/2013 [facility] URINE AND STOOL UA Bili Negative *NA* (05/06/2013 22:08:05) Negative 05/07/2013 [facility] URINE AND STOOL UA Blood Negative (05/06/2013 22:08:05) Negative 05/07/2013 Normal [facility] URINE AND STOOL UA Nitrite Negative (05/06/2013 22:08:05) Negative 05/07/2013 [facility] URINE AND STOOL UA Turbidity Slight *ABN* (05/06/2013 22:08:05) Clear 05/07/2013 [facility] URINE AND STOOL UA Protein Negative mg/dL Negative 05/07/2013 Normal [facility] URINE AND STOOL UA Glucose Negative mg/dL Negative 05/07/2013 [facility] URINE AND STOOL UA Bacteria Moderate /HPF None Seen 05/07/2013 [facility] URINE AND STOOL UA Mucus Few /LPF None Seen 05/07/2013 [facility] URINE AND STOOL UA WBC 1 0 - 5 05/07/2013 Normal [facility] URINE AND STOOL UA Sq Epi Moderate /LPF Few 05/07/2013 ABN [facility] URINE AND STOOL UA Leuk Est Negative (05/06/2013 22:08:05) Negative 05/07/2013 Normal [facility] URINE AND STOOL UA Ketones TR 05/07/2013 [facility] URINE AND STOOL UA Urobilinogen <=1.0 mg/dL 0.1 - 1.0 05/07/2013 [facility] URINE AND STOOL UA Spec Grav 1.011 <=1.030 05/07/2013 Normal [facility] URINE AND STOOL UA pH 6.5 5.0 - 8.0 05/07/2013 Normal [facility] URINE AND STOOL UA Color Yellow *NA* (05/06/2013 22:08:05) Yellow 05/07/2013 [facility] IMMUNOLOGY HIV. Negative *NA* (05/06/2013 22:08:00) Negative 05/07/2013 [facility] IMMUNOLOGY RPR Non Reactive (05/06/2013 22:08:00) Non Reactive 05/07/2013 Normal [facility] CHEMISTRY Lactic Acid Lvl 0.8 0.5 - 2.2 02/12/2013 Normal [facility] VIRAL - SEROLOGY Influ A Positive 1 *ABN* (02/12/2013 11:01:24) Negative 02/12/2013 ABN <sup>1</sup>Result Comment: "Significant Findings called to Marilyn CARRat 02/12/2013 11:22 __by ab__.Read Back OK." [facility] VIRAL - SEROLOGY Influ B Negative 2 (02/12/2013 11:01:24) Negative 02/12/2013 Normal <sup>2</sup>Interpretive Data: Influenza A&B Antigen:
Due to the low sensitivity of this test a negative result does not exclude influenza virus infection. A diagnosis of influenza should be considered based on a patient's clinical presentation and empiric antiviral treatment should be considered, if indicated. If more conclusive testing is desired, follow-up confirmatory testing with either viral culture or PCR is warranted. [facility] HEMATOLOGY Basophils # 0.0 0.0 - 0.2 02/12/2013 Normal [facility] HEMATOLOGY Eosinophils # 0.0 0.0 - 0.5 02/12/2013 Normal [facility] HEMATOLOGY Monocytes # 0.4 0.0 - 0.8 02/12/2013 Normal [facility] HEMATOLOGY Segs-Bands # 5.4 1.5 - 8.1 02/12/2013 Normal [facility] HEMATOLOGY Lymphocytes # 0.9 1.0 - 5.5 02/12/2013 LOW [facility] HEMATOLOGY Basophils 0.1 0.0 - 1.0 02/12/2013 Normal [facility] HEMATOLOGY Eosinophils 0.0 0.0 - 4.0 02/12/2013 Normal [facility] HEMATOLOGY Monocytes 6.5 2.0 - 12.0 02/12/2013 Normal [facility] HEMATOLOGY Lymphocytes 13.7 20.0 - 40.0 02/12/2013 [facility] HEMATOLOGY Segs 79.7 45.0 - 75.0 02/12/2013 [facility] HEMATOLOGY MCH 31.6 27.0 - 31.0 02/12/2013 [facility] HEMATOLOGY MCV 92.9 81.0 - 99.0 02/12/2013 Normal [facility] HEMATOLOGY Hct 32.5 36.0 - 48.0 02/12/2013 [facility] HEMATOLOGY Hgb 11.0 12.0 - 16.0 02/12/2013 LOW [facility] HEMATOLOGY Platelet 240 133 - 450 02/12/2013 Normal [facility] HEMATOLOGY RDW 13.1 11.5 - 14.5 02/12/2013 Normal [facility] HEMATOLOGY MPV 7.6 7.4 - 10.4 02/12/2013 Normal [facility] HEMATOLOGY MCHC 34.0 32.0 - 36.0 02/12/2013 Normal [facility] HEMATOLOGY WBC X 10x3 6.7 3.7 - 10.4 02/12/2013 Normal [facility] HEMATOLOGY RBC X 10x6 3.49 4.20 - 5.40 02/12/2013 [facility] CHEMISTRY eGFR 145 02/12/2013 <sup>3</sup>Result Comment: The eGFR is calculated using the CKD-EPI formula. In most young, healthy individuals the eGFR will be >90 mL/min/1.73m2. The eGFR declines with age. An eGFR of 60-89 may be normal in some populations, particularly the elderly, for whom the CKD-EPI formula has not been extensively validated. Use of the eGFR is not recommended in the following populations:& lt;br/>
Individuals with unstable creatinine concentrations, including patients and those with serious co-morbid conditions.

Patients with extremes in muscle mass or diet.

The data above are obtained from the National Kidney Disease Education Program (NKDEP) which additionally recommends that when the eGFR is used in patients with extremes of body mass index for purposes of drug dosing, the eGFR should be multiplied by the estimated BMI. [facility] CHEMISTRY CO2 24 24 - 32 02/12/2013 Normal [facility] CHEMISTRY Calcium Lvl 8.8 8.5 - 10.5 02/12/2013 Normal [facility] CHEMISTRY Sodium Lvl 138 135 - 145 02/12/2013 Normal [facility] CHEMISTRY Potassium Lvl 3.5 3.5 - 5.1 02/12/2013 Normal [facility] CHEMISTRY Chloride Lvl 104 95 - 109 02/12/2013 Normal [facility] CHEMISTRY Glucose Lvl 93 70 - 99 02/12/2013 Normal <sup>4</sup>Interpretive Data: Adult reference range values reflect the clinical guidelines
of the [place] [employer]. [facility] CHEMISTRY Creatinine Lvl 0.4 0.5 - 1.4 02/12/2013 LOW [facility] CHEMISTRY BUN 4 7 - 22 02/12/2013 LOW [facility] CHEMISTRY AGAP 13.5 10.0 - 20.0 02/12/2013 Normal [facility] HEMATOLOGY Platelet see note 133 - 450 02/12/2013 [facility] HEMATOLOGY MPV * 7.4 - 10.4 02/12/2013 [facility] HEMATOLOGY RDW * 11.5 - 14.5 02/12/2013 [facility] HEMATOLOGY MCV * 81.0 - 99.0 02/12/2013 [facility] HEMATOLOGY Hct * 36.0 - 48.0 02/12/2013 [facility] HEMATOLOGY MCHC * 32.0 - 36.0 02/12/2013 [facility] HEMATOLOGY MCH * 27.0 - 31.0 02/12/2013 [facility] HEMATOLOGY RBC X 10x6 * 4.20 - 5.40 02/12/2013 [facility] HEMATOLOGY Hgb * 12.0 - 16.0 02/12/2013 [facility] HEMATOLOGY WBC X 10x3 see note* 3.7 - 10.4 02/12/2013 <sup>5</sup>Result Comment: specimen clotted. notified kathe bassett@ 02/12/2013 10:14 by bushra [facility] URINALYSIS UA Urobilinogen <=1.0 mg/dL 0.1 - 1.0 02/12/2013 [facility] URINALYSIS UA pH 7.0 5.0 - 8.0 02/12/2013 Normal [facility] URINALYSIS UA Protein Negative mg/dL Negative 02/12/2013 Normal [facility] URINALYSIS UA Color Yellow *NA* (02/12/2013 06:17:38) Yellow 02/12/2013 [facility] URINALYSIS UA Turbidity Clear (02/12/2013 06:17:38) Clear 02/12/2013 Normal [facility] URINALYSIS UA Spec Grav 1.013 <=1.030 02/12/2013 Normal [facility] URINALYSIS UA Blood Negative (02/12/2013 06:17:38) Negative 02/12/2013 Normal [facility] URINALYSIS UA Nitrite Negative (02/12/2013 06:17:38) Negative 02/12/2013 Normal [facility] URINALYSIS UA Glucose Negative mg/dL Negative 02/12/2013 [facility] URINALYSIS UA Ketones 20 mg/dL Negative 02/12/2013 ABN [facility] URINALYSIS UA Bili Negative *NA* (02/12/2013 06:17:38) Negative 02/12/2013 [facility] URINALYSIS UA Bacteria Moderate /HPF None Seen 02/12/2013 ABN [facility] URINALYSIS UA Leuk Est Negative (02/12/2013 06:17:38) Negative 02/12/2013 Normal [facility] URINALYSIS UA Sq Epi Occasional /LPF Few 02/12/2013 [facility] URINALYSIS UA WBC 1 0 - 5 02/12/2013 Normal [facility] URINALYSIS UA RBC <1 0 - 2 02/12/2013 Normal [facility] URINALYSIS UA Mucus Few /LPF None Seen 02/12/2013 [facility] BLOOD BANK RESULTS Rhig Product available 1 (10/26/2012 14:10:00) 10/26/2012 Normal <sup>1</sup>Result Comment: 10/26/2012 14:55 DENNIS
Called to Loyda at 10/26/2012 14:55. [facility] BLOOD BANK RESULTS ABO/Rh O NEG 10/26/2012 Unknown [facility] BLOOD BANK RESULTS Antibody Scrn Negative (10/26/2012 11:52:00) 10/26/2012 Normal [facility] [place]MISTR[place] [id number] 10/26/2012 NA <sup>4</sup>Interpretive Data: Reference Range:
Male 0 - 5 mIU/mL
Non- Female 0 - 5 mIU/mL

Note: hCG result should be used in conjunction with symptoms, results
of other tests, and clinical impressions.

Weeks of Gestation hCG (mIU/mL)

3 6 - 71
4 10-750
5 217 - 7,138
6 158 -31,795
7 3,697 - 163,563
8 32,065 - 149,571
9 63,803 - 151,410
10 46,506 - 186,977
11 27,832 - 210,612
14 13,950 - 62,530
15 12,039 - 70,971
16 9,040 - 56,451
17 8,175 - 55,868
18 8,099 - 58,176 [facility] CHEMISTRY eGFR 135 10/26/2012 NA <sup>2</sup>Result Comment: The eGFR is calculated using the CKD-EPI formula. In most young, healthy individuals the eGFR will be >90 mL/min/1.73m2. The eGFR declines with age. An eGFR of 60-89 may be normal in some populations, particularly the elderly, for whom the CKD-EPI formula has not been extensively validated. Use of the eGFR is not recommended in the following populations:& lt;br/>
Individuals with unstable creatinine concentrations, including patients and those with serious co-morbid conditions.

Patients with extremes in muscle mass or diet.

The data above are obtained from the National Kidney Disease Education Program (NKDEP) which additionally recommends that when the eGFR is used in patients with extremes of body mass index for purposes of drug dosing, the eGFR should be multiplied by the estimated BMI. [facility] CHEMISTRY Calcium Lvl 8.8 8.5 - 10.5 10/26/2012 Normal [facility] CHEMISTRY CO2 25 24 - 32 10/26/2012 Normal [facility] CHEMISTRY Creatinine Lvl 0.5 0.5 - 1.4 10/26/2012 Normal [facility] CHEMISTRY BUN 8 7 - 22 10/26/2012 Normal [facility] CHEMISTRY Glucose Lvl 95 70 - 99 10/26/2012 Normal <sup>3</sup>Interpretive Data: Adult reference range values reflect the clinical guidelines
of the [place] [employer]. [facility] CHEMISTRY Potassium Lvl 3.8 3.5 - 5.1 10/26/2012 Normal [facility] CHEMISTRY Sodium Lvl 139 135 - 145 10/26/2012 Normal [facility] CHEMISTRY Chloride Lvl 103 95 - 109 10/26/2012 Normal [facility] CHEMISTRY AGAP 14.8 10.0 - 20.0 10/26/2012 Normal [facility] HEMATOLOGY Hgb 14.0 12.0 - 16.0 10/26/2012 Normal [facility] HEMATOLOGY WBC 7.3 3.7 - 10.4 10/26/2012 Normal [facility] HEMATOLOGY RBC 4.43 4.20 - 5.40 10/26/2012 Normal [facility] HEMATOLOGY Hct 41.0 36.0 - 48.0 10/26/2012 Normal [facility] HEMATOLOGY MCV 92.6 81.0 - 99.0 10/26/2012 Normal [facility] HEMATOLOGY MCHC 34.1 32.0 - 36.0 10/26/2012 Normal [facility] HEMATOLOGY RDW 13.7 11.5 - 14.5 10/26/2012 Normal [facility] HEMATOLOGY MCH 31.6 27.0 - 31.0 10/26/2012 HI [facility] HEMATOLOGY MPV 9.0 7.4 - 10.4 10/26/2012 Normal [facility] HEMATOLOGY Platelet 271 133 - 450 10/26/2012 Normal [facility] HEMATOLOGY Monocytes # 0.4 0.0 - 0.8 10/26/2012 Normal [facility] HEMATOLOGY Lymphocytes # 1.5 1.0 - 5.5 10/26/2012 Normal [facility] HEMATOLOGY Eosinophils # 0.1 0.0 - 0.5 10/26/2012 Normal [facility] HEMATOLOGY Basophils # 0.0 0.0 - 0.2 10/26/2012 Normal [facility] HEMATOLOGY Monocytes 5.3 2.0 - 12.0 10/26/2012 Normal [facility] HEMATOLOGY Segs 73.3 45.0 - 75.0 10/26/2012 Normal [facility] HEMATOLOGY Lymphocytes 20.1 20.0 - 40.0 10/26/2012 Normal [facility] HEMATOLOGY Eosinophils 0.8 0.0 - 4.0 10/26/2012 Normal [facility] HEMATOLOGY Segs-Bands # 5.3 1.5 - 8.1 10/26/2012 Normal [facility] HEMATOLOGY Basophils 0.5 0.0 - 1.0 10/26/2012 Normal [facility] CHEMISTRY U Preg Positive *ABN* (10/26/2012 11:46:00) Negative 10/26/2012 ABN [facility] URINALYSIS UA Urobilinogen 0.1 - 1.0 10/26/2012 NA [facility] URINALYSIS UA Mucus Few /LPF *NA* (10/26/2012 11:46:00) None Seen 10/26/2012 [facility] URINALYSIS UA RBC 9 0 - 2 10/26/2012 HI [facility] URINALYSIS UA Bacteria Occasional /HPF *NA* (10/26/2012 11:46:00) None Seen 10/26/2012 [facility] URINALYSIS UA Nitrite Negative (10/26/2012 11:46:00) Negative 10/26/2012 Normal [facility] URINALYSIS UA Leuk Est Negative (10/26/2012 11:46:00) Negative 10/26/2012 Normal [facility] URINALYSIS UA Sq Epi Few /LPF *NA* (10/26/2012 11:46:00) Few 10/26/2012 [facility] URINALYSIS UA Ketones Negative mg/dL *NA* (10/26/2012 11:46:00) Negative 10/26/2012 [facility] URINALYSIS UA Blood Small *ABN* (10/26/2012 11:46:00) Negative 10/26/2012 ABN [facility] URINALYSIS UA Protein Negative mg/dL (10/26/2012 11:46:00) Negative 10/26/2012 Normal [facility] URINALYSIS UA Glucose Negative mg/dL *NA* (10/26/2012 11:46:00) Negative 10/26/2012 [facility] URINALYSIS UA Bili Negative *NA* (10/26/2012 11:46:00) Negative 10/26/2012 [facility] URINALYSIS UA pH 6.0 5.0 - 8.0 10/26/2012 Normal [facility] URINALYSIS UA Spec Grav 1.019 <=1.030 10/26/2012 Normal [facility] URINALYSIS UA Turbidity Slight *ABN* (10/26/2012 11:46:00) Clear 10/26/2012 ABN [facility] URINALYSIS UA Color Yellow *NA* (10/26/2012 11:46:00) Yellow 10/26/2012 NA [facility] Pathology Reports No Data Provided for This Section Diagnostic Reports Report Value Date Source Preg < 14wks sing gest w transvag/Dop US Clinical Indication: - vaginal bleeding; Comparison: None TECHNIQUE: Pelvic ultrasound was performed with color and negro scale imaging. Transabdominal technique was performed as well as transvaginal technique for improved visualization of the adnexa and endometrium. FINDINGS: The anteverted uterus measures 9.2 x 5.2 x 6.9 cm. There is a single monochorionic/monoamnionic intrauterine with an ovoid gestational sac. The pole and yolk sac are seen. The estimated gestational age is 8 weeks 1 day by crown-rump length of 1.72 cm. The heart rate is 161 beats per minute. Mean sac diameter is 3.39 cm corresponding to 8 weeks 4 days. Low-level scattered echogenic foci or debris are seen within the gestational sac. A small subchorionic hemorrhage is seen along the inferior margin of the gestational sac. The right ovary measures 4.5 x 3.1 x 2.8 cm and the left ovary measures 2.8 x 1.8 x 2.1 cm. There is normal ovarian contour and morphology. A 2.4 x 2.5 x 2.6 cm right ovarian corpus luteum is seen. There are no adnexal masses. The Doppler images show normal bilateral ovarian blood flow. There is no free fluid in the cul-de-sac. IMPRESSION: Single intrauterine with estimated gestational age of 8 weeks 1 day . heart rate of 161 beats per minute. Small subchorionic hemorrhage. Scattered internal mildly echogenic foci or debris are seen within the gestational sac, of uncertain clinical significance. SL: [id number] 01/24/2018 [facility] Brain wo contrast MRA Study: Brain wo contrast MRA 09/03/2017 12:57 PM CDT Ordering Physician: Js Shaffer MD Clinical Indication: - left sided numbness. Comparison: None Technique: 3-D [id number] MR angiographic images and maximum intensity projection reformats of the [place] of [place] are obtained on a 1.5 Lona magnet. FINDINGS: A broad Distal cervical, petrous, cavernous and supraclinoid segments of the internal carotid arteries are unremarkable. Proximal ophthalmic arteries are visualized, but assessment is limited. Anterior and middle cerebral artery branches bilaterally are unremarkable. Anterior and bilateral posterior communicating arteries are patent. The distal vertebral arteries are normal in appearance dictating a normal study. Distal vertebral, basilar and bilateral posterior cerebral and superior cerebellar arteries are unremarkable. Patent posterior and anterior inferior cerebellar artery branches are seen. There is no evidence for AVM, aneurysm, stenosis or occlusion. IMPRESSION: Normal MRA of the [place]. SL: [id number] 09/03/2017 [facility] Brain wo contrast MRI Study: Brain wo contrast MRI 09/03/2017 11:45 AM CDT Ordering Physician: Efren Vela MD Clinical Indication: - stroke rule out; 32-year-old with left-sided numbness. Comparison: CT brain dated 09/03/2017 TECHNIQUE: Multiplanar, multiecho magnetic resonance imaging of the brain is performed without contrast on a 1.5 Lona magnet. There is a rounded focus of decreased T2 and T2*signal within the right anterior frontal lobe, corresponding to 7 mm calcification noted on previous CT scan. The appearance could reflect neurocysticercosis. Please correlate critically. A single punctate focus of FLAIR hyperintensity is present in the left castillo radiata. This is nonspecific and is probably not clinically significant. There is no evidence for intracranial mass, mass effect or extra-axial fluid collection. No subacute or chronic blood products are seen. There is no evidence for acute ischemia on diffusion-weighted images. Ventricles, sulci and basal cisterns are within normal limits for age. Normal flow voids are present in the arterial vessels at the skull base. Flow voids in the dural venous sinuses are normal. The pituitary, internal auditory canals and visualized cranial nerves at the skull base are unremarkable. Paranasal sinuses are clear. Mastoid air cells are clear. Orbital structures are grossly unremarkable. IMPRESSION: 7 mm right anterior frontal calcification noted, likely reflecting neurocysticercosis. Please correlate clinically. The examination is otherwise unremarkable. SL: [id number] 09/03/2017 [facility] Carotid artery Doppler bilat US Carotid artery Doppler bilat US CLINICAL HISTORY: - left sided numbness. COMPARISON: none TECHNIQUE: Bethea scale, color Doppler and spectral Doppler of the cervical carotid arteries was performed with standard technique. Static images are submitted for review. FINDINGS: RIGHT: There is no significant intimal thickening or plaque visualized in right CCA. Visualized portion of right ECA is patent. No significant plaque is visualized at the right carotid bulb or visualized portion of right ICA. Right ICA PSV 78 cm/sec. Right CCA PSV 114 cm/sec. Right ICA/CCA Ratio 0.7 LEFT: There is no significant intimal thickening or plaque visualized in the left CCA. Visualized portion of left ECA is patent. No significant plaque is visualized at the left carotid bulb and visualized portion of left ICA. Left ICA PSV 62 cm/sec. Left CCA PSV 116 cm/sec. Left ICA/CCA Ratio 0.5 Antegrade flow is visualized in both vertebral arteries. IMPRESSION: No sonographic evidence for hemodynamically significant stenosis. CONSENSUS PANEL Doppler US criteria for diagnosis of ICA stenosis: Stenosis (%) ICA PSV (cm/sec) ICA EDV(cm/sec) ICA/CCA ratio <50 % <125 <40 <2.0 50-69 % 125-230 40-100 2.0-4.0 >70% but less than >230 >100 >4.0 near occlusion NOTE: Any reported ICA stenoses indirectly reference the distal internal carotid diameter as the denominator for stenosis measurement utilizing Consensus Panel Criteria. SL: [id number] 09/03/2017 [facility] Chest 1view DX PROCEDURE: Chest x-ray. Clinical Indication: - dizzy Comparison: 04/15/2017. FINDINGS: Normal cardiomediastinal silhouette. No pneumonia, effusion, or pneumothorax. No acute osseous abnormalities. IMPRESSION: No focal lung disease. SL: [id number] 09/03/2017 [facility] Brain Stroke wo contrast CT Clinical Indication: - L arm numbness, prior R facial numbness, dizziness Comparison: None TECHNIQUE: CT images were obtained from the foramen magnum to the vertex without the use of intravenous contrast on a multidetector CT. Coronal and sagittal reconstructions were obtained. CT radiation dose DLP: 982 mGy-cm FINDINGS: There is no acute cortical infarct, parenchymal hemorrhage or an intra-axial mass. There is a subcortical 6 mm calcification of the right frontal lobe. The basal ganglia is normal. There is no obstructive hydrocephalus. There are no extra axial fluid collections. Sella and parasellar structures in normal. There is no cerebellar tonsillar ectopia. There is normal pneumatization of the middle ear cavity, mastoid air cells and partially visualized paranasal sinuses. The orbital fossa contents are normal. The cranium is intact. IMPRESSION: There is no acute cortical infarct, parenchymal hemorrhage or an intra-axial mass. As warranted clinically, MR imaging can be performed. SL: CANDICE 09/03/2017 [facility] Chest CTA Clinical Indication: - Chest pain radiating to the back. Comparison: None. TECHNIQUE: Sequential trans-axial images were obtained through the chest with the administration of IV iodinated contrast. Coronal and sagittal reconstructions were obtained. Rotating 3-D reconstructions were performed Dose: TYD=422 mGy-cm Findings: Lungs: Normal. Airways: Normal. Pleural and pericardial spaces: Trace bilateral pleural effusions. Thoracic lymph nodes: Normal. Lower neck: Small left thyroid calcification. Upper abdomen: Small hiatal hernia. Vasculature: No thoracic aortic aneurysm or dissection. No pulmonary embolism is appreciated. Osseous structures: Normal. IMPRESSION: Unremarkable CT of the chest. No pulmonary embolism is appreciated. SL: KENNA 04/16/2017 [facility] Chest 1view DX EXAM: Chest 1view DX DATE: 04/15/2017 9:09 PM REIMBURSEMENT SPEC INDICATION: Chest pain - chest pain COMPARISON: None. IMPRESSION: Mildly enlarged cardiac silhouette. No definite failure. No gross focal consolidation, significant pleural effusion or pneumothorax detected. SL: [id number] 04/15/2017 [facility] Pelvic with Transvaginal and Pelvic Dopp Pelvic ultrasound TECHNIQUE: Multiple static transabdominal images of the pelvis are submitted for review. FINDINGS: The uterus measures approximately 14.6 cm in the sagittal length. Marked heterogeneous thickening of the endometrial stripe. TRANSVAGINAL ULTRASOUND: TECHNIQUE: Multiple static transvaginal images of the pelvis are submitted for review. FINDINGS: Extensive heterogeneous thickening of the endometrium is noted. Maximal thickening of the endometrial stripe is approximately 4.5 cm. No significant vascular flow is present within this complex area. The right ovary measures 3.4 x 1.8 x 2.3 cm in size, and the left ovary measures 3.5 x 1.9 x 2.6 cm in size. Flow is identified in both ovaries on the color Doppler and spectral Doppler analysis. No free fluid is present in the cul-de-sac. IMPRESSION: Extensive, complex, heterogeneous thickening is noted in the endometrial stripe. Findings likely represent hemorrhage and retained products of conception. SL:13 06/15/2013 [facility] Pelvis US TRANSABDOMINAL PELVIC ULTRASOUND CLINICAL INDICATION: Vaginal bleeding, 06/03/2013 COMPARISON: Pelvic ultrasound 05/27/2009 DISCUSSION: The uterus measures 14.3 x 6.4 x 9.2 cm. The endometrial stripe is diffusely thickened and heterogeneous, measuring 31 mm in width. Right ovary is not identified. The left ovary is normal in size and echogenicity, measuring 2.5 x 1.9 x 2.4 cm. No free fluid is seen. IMPRESSION: Thickened heterogeneous appearance of the endometrium suggests retained products of conception. SL: 16 06/14/2013 [facility] Chest 1view Chest one view. COMPARISON: No priors. FINDINGS: Limited AP portable study. Mild hazy opacity is present at the right lung base medially. Findings may be related to atelectasis versus developing pneumonia. Please correlate with clinical exam. No effusions. Mild enlargement of cardiac silhouette. No significant bony abnormality is evident. SL:13 02/12/2013 [facility] Preg < 14wks Single Gest w/Transvag US Pelvic ultrasound; Oct 26, 2012 01:05:38 PM CLINICAL INDICATION: 27-year-old G1, P0 female; vaginal bleeding; LMP unsure TECHNIQUE: Transabdominal and transvaginal real-time grayscale ultrasound examination for is interpreted without comparison. FINDINGS: Transabdominal imaging demonstrates a gravid uterus measuring 7.4 x 4.4 by 4. cm. Transvaginal imaging reveals a single viable intrauterine fetus. The heart rate measures 112 beats per minute. The gestational age by ultrasound is 6 weeks 2 days. Sonographic estimated delivery date is 06/18/2013. No subchorionic hemorrhage is present. The biometry are as follows: Gestational sac 1.7 cm ( 6 weeks 4 days ) Yolk sac 0.25 cm CRL 0.49 cm ( 6 weeks 2 days ) Right ovary measures 3 x 1.6 a 2.7 cm, and contains a 1.6 cm heterogeneously hypoechoic round lesion with posterior acoustic enhancement and increased rim vascularity. Left ovary is normal in size and echogenicity measuring 2.3 x 1.6 x 1.7 cm. The cervical internal os is closed. IMPRESSION: Single viable intrauterine with sonographic gestational age of 6 weeks 2 days. Right ovarian corpus luteal cyst, 1.6 cm. SL: 14 10/26/2012 [facility] Consultation Notes No Data Provided for This Section Discharge Summaries No Data Provided for This Section History and Physicals No Data Provided for This Section Vital Signs Vital Sign Value Date Comments Source Systolic (mm Hg) 104 01/24/2018 [facility] Diastolic (mm Hg) 66 01/24/2018 [facility] Heart Rate 66 01/24/2018 [facility] Respitory Rate 18 01/24/2018 [facility] Systolic (mm Hg) 108 01/24/2018 [facility] Diastolic (mm Hg) 60 01/24/2018 [facility] Temperature Oral (F) 97.8 F 01/24/2018 [facility] Heart Rate 64 01/24/2018 [facility] Respitory Rate 18 01/24/2018 [facility] Heart Rate 61 01/24/2018 [facility] Respitory Rate 16 01/24/2018 [facility] Systolic (mm Hg) 119 01/24/2018 [facility] Diastolic (mm Hg) 78 01/24/2018 [facility] Weight 72.727 01/24/2018 [facility] BMI Calculated 31.31 01/24/2018 [facility] Height 152.4 cm 01/24/2018 [facility] Temperature Oral (F) 97.7 F 01/24/2018 [facility] Weight 68.001 09/04/2017 [facility] Heart Rate 58 09/04/2017 [facility] Temperature Oral (F) 97.4 F 09/04/2017 [facility] Systolic (mm Hg) 110 09/04/2017 [facility] Diastolic (mm Hg) 63 09/04/2017 [facility] Respitory Rate 18 09/04/2017 [facility] Heart Rate 61 09/04/2017 [facility] Systolic (mm Hg) 108 09/04/2017 [facility] Diastolic (mm Hg) 71 09/04/2017 [facility] Temperature Oral (F) 98.2 F 09/04/2017 [facility] Temperature Oral (F) 97.6 F 09/04/2017 [facility] Respitory Rate 18 09/04/2017 [facility] Heart Rate 56 09/04/2017 [facility] Systolic (mm Hg) 99 09/04/2017 [facility] Diastolic (mm Hg) 63 09/04/2017 [facility] Respitory Rate 16 09/04/2017 [facility] BMI Calculated 29.36 09/03/2017 [facility] Weight 68.182 09/03/2017 [facility] Height 152.4 cm 09/03/2017 [facility] Weight 72.727 09/03/2017 [facility] BMI Calculated 31.31 09/03/2017 [facility] Height 152.4 cm 09/03/2017 [facility] Respitory Rate 16 08/04/2014 [facility] Systolic (mm Hg) 127 08/04/2014 [facility] Diastolic (mm Hg) 78 08/04/2014 [facility] Temperature Oral (F) 98.0 F 08/04/2014 [facility] Heart Rate 67 08/04/2014 [facility] Weight 67.727 08/04/2014 [facility] BMI Calculated 29.16 08/04/2014 [facility] Respitory Rate 18 08/04/2014 [facility] Heart Rate 69 08/04/2014 [facility] Systolic (mm Hg) 148 08/04/2014 [facility] Diastolic (mm Hg) 83 08/04/2014 [facility] Temperature Oral (F) 98.2 F 08/04/2014 [facility] Height 152.4 cm 08/04/2014 [facility] Respitory Rate 14 06/18/2013 [facility] Heart Rate 68 06/18/2013 [facility] Systolic (mm Hg) 116 06/18/2013 [facility] Temperature Oral (F) 98.4 F 06/18/2013 [facility] Diastolic (mm Hg) 76 06/18/2013 [facility] Respitory Rate 14 06/18/2013 [facility] Heart Rate 65 06/18/2013 [facility] Systolic (mm Hg) 113 06/18/2013 [facility] Diastolic (mm Hg) 72 06/18/2013 [facility] Temperature Oral (F) 98.3 F 06/18/2013 [facility] Respitory Rate 16 06/18/2013 [facility] Systolic (mm Hg) 117 06/18/2013 [facility] Diastolic (mm Hg) 78 06/18/2013 [facility] Temperature Oral (F) 98.0 F 06/18/2013 [facility] Heart Rate 70 06/18/2013 [facility] Height 152.4 cm 06/14/2013 [facility] Weight 78.636 06/14/2013 [facility] BMI Calculated 33.86 06/14/2013 [facility] Height 154.94 cm 05/07/2013 [facility] Weight 73.182 05/07/2013 [facility] BMI Calculated 30.48 05/07/2013 [facility] Temperature Oral (F) 97.7 F 02/13/2013 [facility] Respitory Rate 17 02/13/2013 [facility] Systolic (mm Hg) 102 02/13/2013 [facility] Heart Rate 86 02/13/2013 [facility] Diastolic (mm Hg) 68 02/13/2013 [facility] Systolic (mm Hg) 95 02/13/2013 [facility] Diastolic (mm Hg) 58 02/13/2013 [facility] Heart Rate 85 02/13/2013 [facility] Respitory Rate 17 02/13/2013 [facility] Temperature Oral (F) 97.5 F 02/13/2013 [facility] Heart Rate 83 02/13/2013 [facility] Systolic (mm Hg) 102 02/13/2013 [facility] Diastolic (mm Hg) 63 02/13/2013 [facility] Respitory Rate 18 02/13/2013 [facility] Temperature Oral (F) 97.8 F 02/13/2013 [facility] Weight 68.182 02/12/2013 [facility] Height 165.1 cm 02/12/2013 [facility] Height 152.4 cm 02/12/2013 [facility] Weight 68.182 02/12/2013 [facility] Weight 65.909 10/26/2012 [facility] Height 152.4 cm 10/26/2012 [facility] Encounters Location Location Details Encounter Type Encounter Number Reason For Visit Attending Provider ADM Date DC Date Status Source [facility] Emergency [id number] ANDREAS DINGRIDDLE 10/26/2012 10/26/2012 Discharged [facility] Inpatient [id number] LUIS NARANJO 02/12/2013 02/13/2013 Discharged [facility] Inpatient [id number] JEAN SANDERSON 05/06/2013 05/11/2013 Discharged [facility] Inpatient [id number] _[id number] Yohannes Steele 06/14/2013 06/18/2013 [facility] [id number] Yevgeniy Baig 08/04/2014 08/04/2014 [facility] Observation [id number] Efren Vela 09/03/2017 09/04/2017 [facility] Emergency [id number] Tony Law 01/24/2018 01/24/2018 [facility] Procedures No Data Provided for This Section Assessment and Plan Assessment and Plan Date Source Extracted from:Title: [facility] Hospitalist Service Discharge Summary Author: Solomon Koehler MD Date: 09/05/17 [facility] Discharge Summary PATIENT NAME:DAPHNE NARVAEZ ATTENDING: SOLOMON MOORE JR, MD ADMISSION DATE: 09/03/2017 08:24 DISCHARGE DATE: 09/04/2017 16:02 DISCHARGE DIAGNOSIS: Anesthesia of skin (R20.0) Possible transient ischemic attack CONSULTING PHYSICIANS/SERVICES: Js Shaffer MD Office: Service: Neurology DISCHARGE CONDITION: Fair HISTORY OF PRESENT ILLNESS: Please see admission history and physical for presenting details HOSPITAL COURSE: Patient presented to the hospital secondary to sensory paresthesias. Patient was seen by neurology and after radiographic workup was negative for a cerebrovascular accident, the patient was found to be suitable for discharge. I saw and examined the patient on day of discharge. The patient was discharged in fair condition, with appropriate followup and appropriate medications. DISCHARGE INSTRUCTIONS: Please notify your physician if any of the following occur: Bleeding, Fever, Nausea, Pain, Shortness of breath, Signs of infection, Swelling Activity: Activity as tolerated, No strenuous activity DISCHARGE DIET: Home Diet: Diet Adult Regular DISCHARGE MEDICATIONS: PLEASE SEE R FOR DETAILS PERTAINING TO DISCHARGE MEDICATIONS DISCHARGE FOLLOWUP: Follow Up With Js Shaffer MD, Call for appointment, within: 2 Weeks, reason: Follow Up On Treatment A total of 33 minutes was spent planning discharge which included bedside counseling. Extracted from:Title: Clinical Document Author: Js Shaffer MD Date: 09/04/17 Progress Note - Daily [facility] Completed: Aug, 11:26 by Js hSaffer MD RM: CCDU - 06, SE CCDU DAPHNE NARVAEZ 32y (: 1985) F Attending: Efren Vela MD Service: Internal Medicine Reason for Admission: ARM NUMBNESS Working DRG: Code status: Full Code [Ordered] Current diet: Isolation: No Isolation/Standard Precautions Allergies: NKDA SUBJECTIVE She still feels like her left arm is a little numb. She has a posterior headache - pulling sensation. No throbbing, photopphobia, nausea, vision changes. She is overall feeling better. No fever OBJECTIVE 24hr Labs 09/04 0911 U Preg Negative 09/04 0327 Chol 137 Trig 201 H HDL 38 L LDL (Calculated) 59 VLDL 40 CHD Risk 3.61 L Glucose Lvl 99 BUN 12 Creatinine Lvl 0.56 Sodium Lvl 141 Potassium Lvl 4.0 Chloride Lvl 106 CO2 27 AGAP 12.0 Calcium Lvl 8.9 eGFR 125 WBC 7.2 RBC 4.40 Hgb 14.0 Hct 40.1 MCV 91.2 MCH 31.9 H MCHC 35.0 RDW 12.9 Platelet 293 MPV 9.1 Segs 52.1 Monocytes 5.2 Lymphocytes 39.9 Eosinophils 2.1 Basophils 0.7 Segs-Bands # 3.8 Lymphocytes # 2.9 Monocytes # 0.4 Eosinophils # 0.2 09/03 1330 Hgb A1C 5.4 S Preg Negative Homocyst Tot 6.4 Ramos still necessary (Yes/No): Line still necessary (Yes/No): Vitals Tmp(F) Pulse BP RR SpO2 FIO2 09/04 07:19 98.2 61 108/71 -- 98 --- 09/04 03:14 97.6 56 99/63 18 97 --- 09/03 23:19 98.4 59 102/61 16 100 --- 09/03 19:26 98.2 66 109/65 17 97 --- 09/03 15:32 98.3 62 117/70 18 96 --- 24 Hr Tmax: 98.4F (36.89c) at 09/03 23:19 Vital Signs are the last 5 in the past 48 hours. Date Wt(kg) Wt(lb) Ht(cm) Ht(in) Method 09/03 (initial) 72.73 160.00 Estimated 09/03 152.40 60.00 Stated I&O Record In Out Bal 24hr Tot 0 0 0 24hr Tot 0 0 0 Medications (6) Active Scheduled Meds (2): 09/04/17 aspirin 81 mg PO Daily 09/03/17 docusate 100 mg PO BID Unscheduled Meds: None PRN Meds (3): 09/03/17 acetaminophen 650 mg PO Q4H 09/03/17 ondansetron 4 mg PO Q6H 09/03/17 sodium chloride (Saline Flush 0.9%) 10 mL IVP PRN One Time Meds (1): 09/03/17 (Completed) aspirin 325 mg PO ONCE Continuous Infusions: None EXAM GEN - NAD HEENT - NCAT. MMM Ext - no c/c/e Skin - no rash Neuro: Mental status: Alert and oriented x3. Language intact. Follows all commands CN: PERRL, EOMI, no droop, facial sensation is normal Motor: 5/5 throughout Sensory: intact to LTx4 Cerebellar: intact ftn, hts Abnormal movements: none Assessment 1. Questionable TIA symptoms - work up thus far unremarkable 2. Headache Plan judicious use of prn pain meds for headache aspirin follow up in neurology clinic in 2 weeks Addendum by Js Shaffer MD on 09/04/2017 11:29 Incidental finding of chronic neurocystercercosis lesion on MRI - no further work up inidcated for this at this time Extracted from:Title: Clinical Document Author: Efren Vela MD Date: 09/03/17 Date of admission: 09/03/17 Reason for admission 1. Left arm paresthesias, TIA workup History of present illness Ms. Narvaez is a 32-year-old woman with no significant past medical history except hypertension during who comes in for evaluation of acute onset numbness and tingling in the left arm, left feet and face. The symptoms began acutely at approximately 7:30 AM. Patient reports all her symptoms began initially with some nausea and feeling dizzy. Following this the paresthesias slowly came around also. At the time of my evaluation, patient is having ongoing but improving paresthesias. She also feels like both her legs are "heavy". Reports having some posterior head aching pain at this time. Denies having any vision changes. Denies any chest pain or palpitations. Denies any recent fever chills. Denies having abdominal pain or diarrhea. Past medical history 1. None Medications At Home: None Past surgical history: None Surgical history 1. None Allergies: No known drug allergies Review of system: As per HPI Family sickle reviewed but noncontributory Physical examination Vitals: Blood pressure 108/72, temperature 98.9, heart rate 57, respiratory 19, 99% room air. Gen: AAOX3, NAD Neuro: left arm is weaker compared to right. No facial asymmetry. CV: RRR, S1 and S2 Lung: CTA bilaterally, no crackles or wheezing heard. Abdomen: Non-distended, non-tender, no rebound or gaurding, bowel sounds are present. : no supraputic region tenderness. No CVA region tenderness. EXT: no peripheral edema. Skin: no rashes or other skin color changes. Diagnostic studies CT the brain: No focal disease CT the brain: No acute abnormalities EKG: Reviewed by me showing normal sinus rhythm. Laboratory data Sodium of 140. Creatinine 0.5. Cardiac enzymes negative. Hemoglobin of 14. Assessment and plan Ms. Narvaez is a 32-year-old woman with no significant past medical history who comes in for evaluation of paresthesias of the left arm, face and left foot. Acute issues *Paresthesias of the left arm *TIA rule out *Headache TIA rule out Having ongoing symptoms. Obtain MRI of the brain and MRA to rule out any aneurysmal effects. Carotid ultrasound, and echocardiogram along with telemetry admit for observation. Neurology evaluation has been done. Hypercoagulable workup and lipid panel studies have also been ordered. We will obtain a STAT urine test. DVT prophylaxis: SCD Disposition: Likely 12 midnights 09/04/2017 [facility] Extracted from:Title: Discharge Summary * Author: Yohannes Steele Date: 06/18/2013 Discharge Plan Discharge Summary Plan Discharge Status: improved. Discharge instructions given: to patient. Discharge disposition: discharge to home. Prescriptions: written and given to patient. Course Improving. Education and Follow-up Counseled: patient, family. Extracted from:Title: Progress Note * Author: Yohannes Steele Date: 06/18/2013 Impression and Plan Course: Improving. Education and Follow-up: Counseled: Patient, Family. Discharge Planning: Plan to discharge ( To home ). Ready for D/C: Yes. Extracted from:Title: OB Admission H&P L&D/ PreOp * Author: Yohannes Steele Date: 06/14/2013 Impression and Plan Delayed post hemmorhage secondary to Retained products of contraception. Products evacuated successfully and pt stabilized. Pt with acute anaemia and low H&H and expected further drop based on presentation and history of bleeding prior to presentation. Blood transfusion ordered. Pt hemodynamically stable. Will admit for observation and transfusion. 06/18/2013 [facility] Plan of Care No Data Provided for This Section Social History Social History Date Source Social History TypeResponse Alcohol Type Wine. Frequency: 1-2 times per month. Smoking Status Never smoker; Exposure to Tobacco Smoke None; Cigarette Smoking Last 365 Days No; Reg Smoking Cessation Counseling No entered on: 01/24/18 02/12/2013 [facility] Family History No Data Provided for This Section Advance Directives No Data Provided for This Section Functional Status No Data Provided for This Section
--- OUTSIDE RECORDS SUMMARY | 2018-10-19 23:54 | XMS REPORT | CCD ---
Author Author Auto Generated Organization [facility] Address Unknown Phone Unavailable Care Team Providers Care Academic Guidance Specialist Name Role Phone Moo Galeano CP Allergies, Adverse Reactions, Alerts Substance Reaction Status NKDA Active Problem List Condition Effective Dates Status Bronchitis 02/13/2009 Resolved Medications Medication Instructions Start Date End Date Status ceftriaxone 1 gm, Route: IVPB, Drug form: 02/12/2013 02/12/2013 Completed PDR/INJ, ONCE, Dosing Weight 68.182, kg, Priority: STAT, Start date: 02/12/13 10:48:00, Stop date: 02/12/13 10:48:00 Ceftin 500 mg oral 500 mg, 1 tab, PO, BID, 14 tab, 02/13/2013 Ordered tablet Substitution Allowed oseltamivir 75 mg 75 mg, 1 cap, PO, BID, 10 cap, 02/13/2013 Ordered oral capsule Substitution Allowed, CAP Claritin 10 mg, 1 tab, Route: PO, Drug form: 02/13/2013 02/13/2013 Discontinued TAB, Daily, Dosing Weight 68.182, kg, Start date: 02/13/13 9:00:00, Duration: 30 day, Stop date: 03/14/13 9:00:001 hr before meals (Same as: Claritin) Saline Flush 0.9% 5 ml, Route: IVP, Drug Form: INJ, 02/12/2013 02/13/2013 Discontinued Dosing Weight 68.182, kg, PRN, PRN Line Flush, Start date: 02/12/13 17:33:00, Duration: 30 day, Stop date: 03/14/13 17:32:00(Same as: BD Posiflush) Sodium Chloride 0.9% 1,000 mL, Rate: 75 ml/hr, Infuse 02/12/2013 02/13/2013 Discontinued IV 1,000 mL over: 13.3 hr, Route: IV, Dosing Weight 68.182 kg, Total Volume: 1,000, Start date: 02/12/13 17:33:00, Duration: 30 day, Stop date: 03/14/13 17:32:00 docusate 100 mg, 1 cap, Route: PO, Drug 02/12/2013 02/13/2013 Discontinued form: CAP, BID, Dosing Weight 68.182, kg, PRN Constipation, Start date: 02/12/13 17:33:00, Duration: 30 day, Stop date: 03/14/13 17:32:00(Same as: Colace) (Do Not Crush) ondansetron 4 mg, 2 mL, Route: IVP, Drug form: 02/12/2013 02/13/2013 Discontinued INJ, Q8H, Dosing Weight 68.182, kg, PRN Nausea & Vomiting, Start date: 02/12/13 17:33:00, Duration: 30 day, Stop date: 03/14/13 17:32:00(Same as: Zofran) Zithromax 500 mg, 2 tab, Route: PO, Drug 02/12/2013 02/12/2013 Completed form: TAB, ONCE, Dosing Weight 68.182, kg, Start date: 02/12/13 14:18:00, Stop date: 02/12/13 14:18:00Take 1 hour before or 2 hours after meals.(Same As: Zithromax) Rocephin + Sodium 1 gm, Route: IVPB, ONCE, Dosing 02/12/2013 02/12/2013 Completed Chloride 0.9% IV 100 Weight 68.182, kg, Priority: STAT, mL Start date: 02/12/13 14:17:00, Stop date: 02/12/13 14:17:00(Same As: Rocephin). Use with 100ml NS mini-bag PLUS and infuse over 30 min amoxicillin 500 mg 500 mg, 1 tab, PO, BID, 21 tab, 02/12/2013 02/13/2013 Discontinued oral tablet Substitution Allowed, TAB NS + KCL 20mEq/L 1,000 mL, Rate: 100 ml/hr, Infuse 02/12/2013 02/13/2013 Discontinued 1000ml (Premix) over: 10 hr, Route: IV, Dosing 1,000 mL Weight 68.182 kg, Total Volume: 1,000, Start date: 02/12/13 14:15:00, Duration: 30 day, Stop date: 03/14/13 14:14:00PREMIX IV - Do Not Alter azithromycin 500 mg, Route: PO, ONCE, Dosing 02/12/2013 02/12/2013 Completed Weight 68.182, kg, Priority: STAT, Start date: 02/12/13 10:50:00, Stop date: 02/12/13 10:50:00 Tamiflu 75 mg, 1 cap, Route: PO, Drug form: 02/12/2013 02/13/2013 Discontinued CAP, BID, Dosing Weight 68.182, kg, Start date: 02/12/13 17:00:00, Duration: 30 day, Stop date: 03/14/13 9:00:00Take with food.Same as: Tamiflu) Tamiflu 75 mg, 1 cap, Route: PO, Drug form: 02/12/2013 02/12/2013 Completed CAP, ONCE, Dosing Weight 68.182, kg, Start date: 02/12/13 14:22:00, Stop date: 02/12/13 14:22:00Take with food.Same as: Tamiflu) Vital Signs Most recent to oldest [Reference Range]: 1 2 3 Height 165.1 cm (02/12/2013 17:18:00) 152.4 cm (02/12/2013 02:14:00) Temperature Oral [96.4-99.1 DegF] 97.7 DegF (02/13/2013 16:00:00) 97.5 DegF (02/13/2013 12:00:00) 97.8 DegF (02/13/2013 08:00:00) Systolic Blood Pressure [90-140 mmHg] 102 mmHg (02/13/2013 16:00:00) 95 mmHg (02/13/2013 12:00:00) 102 mmHg (02/13/2013 08:00:00) Diastolic Blood Pressure [60-90 mmHg] 68 mmHg (02/13/2013 16:00:00) 58 mmHg *LOW* (02/13/2013 12:00:00) 63 mmHg (02/13/2013 08:00:00) Respiratory Rate [14-20 BRMIN] 17 BRMIN (02/13/2013 16:00:00) 17 BRMIN (02/13/2013 12:00:00) 18 BRMIN (02/13/2013 08:00:00) Peripheral Pulse Rate [60-100 bpm] 86 bpm (02/13/2013 16:00:00) 85 bpm (02/13/2013 12:00:00) 83 bpm (02/13/2013 08:00:00) Weight 68.182 kg (02/12/2013 17:18:00) 68.182 kg (02/12/2013 02:14:00) Results URINALYSIS Most recent to oldest [Reference Range]: 1 UA Turbidity [Clear] Clear (02/12/2013 06:17:38) UA Color [Yellow] Yellow *NA* (02/12/2013 06:17:38) UA pH [5.0-8.0] 7.0 (02/12/2013 06:17:38) UA Spec Grav [<=1.030] 1.013 (02/12/2013 06:17:38) UA Glucose [Negative mg/dL] Negative mg/dL *NA* (02/12/2013 06:17:38) UA Blood [Negative] Negative (02/12/2013 06:17:38) UA Ketones [Negative mg/dL] 20 mg/dL *ABN* (02/12/2013 06:17:38) UA Protein [Negative mg/dL] Negative mg/dL (02/12/2013 06:17:38) UA Urobilinogen [0.1-1.0 mg/dL] <=1.0 mg/dL *NA* (02/12/2013 06:17:38) UA Bili [Negative] Negative *NA* (02/12/2013 06:17:38) UA Leuk Est [Negative] Negative (02/12/2013 06:17:38) UA Nitrite [Negative] Negative (02/12/2013 06:17:38) UA WBC [0-5 /HPF] 1 /HPF (02/12/2013 06:17:38) UA RBC [0-2 /HPF] <1 /HPF (02/12/2013 06:17:38) UA Bacteria [None Seen /HPF] Moderate /HPF *ABN* (02/12/2013 06:17:38) UA Sq Epi [Few /LPF] Occasional /LPF *NA* (02/12/2013 06:17:38) UA Mucus [None Seen /LPF] Few /LPF *NA* (02/12/2013 06:17:38) VIRAL - SEROLOGY Most recent to oldest [Reference Range]: 1 Influ A [Negative] Positive 1 *ABN* (02/12/2013 11:01:24) Influ B [Negative] Negative 2 (02/12/2013 11:01:24) 1Result Comment: "Significant Findings called to Marilyn CARRat 02/12/2013 11:22 __by ab__.Read Back OK." 2Interpretive Data: Influenza A&B Antigen: Due to the low sensitivity of this test a negative result does not exclude influ ilia virus infection. A diagnosis of influenza should be considered based on a p atient's clinical presentation and empiric antiviral treatment should be conside red, if indicated. If more conclusive testing is desired, follow-up confirmatory testing with either viral culture or PCR is warranted. CHEMISTRY Most recent to oldest [Reference Range]: 1 Sodium Lvl [135-145 mEq/L] 138 mEq/L (02/12/2013 09:55:00) Potassium Lvl [3.5-5.1 mEq/L] 3.5 mEq/L (02/12/2013 09:55:00) Chloride Lvl [95-109 mEq/L] 104 mEq/L (02/12/2013 09:55:00) CO2 [24-32 mEq/L] 24 mEq/L (02/12/2013 09:55:00) AGAP [10.0-20.0 mEq/L] 13.5 mEq/L (02/12/2013 09:55:00) Creatinine Lvl [0.5-1.4 mg/dL] 0.4 mg/dL *LOW* (02/12/2013 09:55:00) eGFR 145 mL/min/1.73m2 3 *NA* (02/12/2013 09:55:00) BUN [7-22 mg/dL] 4 mg/dL *LOW* (02/12/2013 09:55:00) Glucose Lvl [70-99 mg/dL] 93 mg/dL 4 (02/12/2013 09:55:00) Calcium Lvl [8.5-10.5 mg/dL] 8.8 mg/dL (02/12/2013 09:55:00) Lactic Acid Lvl [0.5-2.2 mMol/L] 0.8 mMol/L (02/12/2013 11:15:00) 3Result Comment: The eGFR is calculated using the [...] be mul tiplied by the estimated BMI. 4Interpretive Data: Adult reference range values reflect the clinical guidelines of the [place] [employer]. HEMATOLOGY Most recent to oldest [Reference Range]: 1 WBC [3.7-10.4 K/CMM] 6.7 K/CMM (02/12/2013 10:29:20) WBC [3.7-10.4] see note* 5 *NA* (02/12/2013 09:55:00) RBC [4.20-5.40 M/CMM] 3.49 M/CMM *LOW* (02/12/2013:29:20) RBC [4.20-5.40] * *NA* (02/12/2013 09:55:00) Hgb [12.0-16.0 g/dL] 11.0 g/dL *LOW* (02/12/2013:29:20) Hgb [12.0-16.0] * *NA* (02/12/2013 09:55:00) Hct [36.0-48.0 %] 32.5 % *LOW* (02/12/2013:29:20) Hct [36.0-48.0] * *NA* (02/12/2013:55:00) MCV [81.0-99.0 fL] 92.9 fL (02/12/2013:29:20) MCV [81.0-99.0] * *NA* (02/12/2013:55:) MCH [27.0-31.0 pg] 31.6 pg *HI* (02/12/2013::) MCH [27.0-31.0] * *NA* (02/12/2013:55:) MCHC [32.0-36.0 g/dL] 34.0 g/dL (02/12/2013::) MCHC [32.0-36.0] * *NA* (02/12/2013:55:) RDW [11.5-14.5 %] 13.1 % (02/12/2013::) RDW [11.5-14.5] * *NA* (02/12/2013::) Platelet [133-450 K/CMM] 240 K/CMM (02/12/2013::) Platelet [133-450] see note *NA* (02/12/2013:55:) MPV [7.4-10.4 fL] 7.6 fL (02/12/2013::) MPV [7.4-10.4] * *NA* (02/12/2013:55:) Segs [45.0-75.0 %] 79.7 % *HI* (02/12/2013::) Lymphocytes [20.0-40.0 %] 13.7 % *LOW* (02/12/2013::) Monocytes [2.0-12.0 %] 6.5 % (02/12/2013::) Eosinophils [0.0-4.0 %] 0.0 % (02/12/2013::) Basophils [0.0-1.0 %] 0.1 % (02/12/2013::) Segs-Bands # [1.5-8.1 K/CMM] 5.4 K/CMM (02/12/2013 10:29:20) Lymphocytes # [1.0-5.5 K/CMM] 0.9 K/CMM *LOW* (02/12/2013 10:29:20) Monocytes # [0.0-0.8 K/CMM] 0.4 K/CMM (02/12/2013 10:29:20) Eosinophils # [0.0-0.5 K/CMM] 0.0 K/CMM (02/12/2013 10:29:20) Basophils # [0.0-0.2 K/CMM] 0.0 K/CMM (02/12/2013 10:29:20) 5Result Comment: specimen clotted. notified kathe bassett@ 02/12/2013 10:14 by Microbiology Reports PROCEDURE:Culture: Blood STATUS: Order in Progress BODY SITE: Left Antecubital COLLECTED DATE/TIME: 02/12/2013 11:15:00 SOURCE: Blood FREE TEXT SOURCE: PRELIMINARY REPORTS Preliminary Report No Growth At 1 Day Preliminary Report No Growth; Holding Preliminary Report No Growth At 2 Days PROCEDURE:Culture: Blood STATUS: Order in Progress BODY SITE: Left Antecubital COLLECTED DATE/TIME: 02/12/2013 11:00:21 SOURCE: Blood FREE TEXT SOURCE: PRELIMINARY REPORTS Preliminary Report No Growth; Holding Preliminary Report No Growth At 1 Day Preliminary Report No Growth At 2 Days
--- OUTSIDE RECORDS SUMMARY | 2018-10-19 23:54 | XMS REPORT | CCD ---
Author Author Auto Generated Organization [facility] Address Unknown Phone Unavailable Care Team Providers Care Harness Installer Name Role Phone Johnathan Bright CP Allergies, Adverse Reactions, Alerts Substance Reaction Status NKDA Active Medications Medication Instructions Start Date End Date Status Saline Flush 0.9% 5 ml, Route: IVP, Drug Form: INJ, 10/26/2012 10/26/2012 Discontinued Dosing Weight 65.909, kg, PRN, PRN Line Flush, Start date: 10/26/12 11:46:00, Duration: 30 day, Stop date: 11/25/12 11:45:00 Vital Signs Most recent to oldest [Reference Range]: 1 Height 152.4 cm (10/26/2012 11:27:00) Weight 65.909 kg (10/26/2012 11:27:00) Results URINALYSIS Most recent to oldest [Reference Range]: 1 UA Turbidity [Clear] Slight *ABN* (10/26/2012 11:46:00) UA Color [Yellow] Yellow *NA* (10/26/2012 11:46:00) UA pH [5.0-8.0] 6.0 (10/26/2012 11:46:00) UA Spec Grav [<=1.030] 1.019 (10/26/2012 11:46:00) UA Glucose [Negative mg/dL] Negative mg/dL *NA* (10/26/2012 11:46:00) UA Blood [Negative] Small *ABN* (10/26/2012 11:46:00) UA Ketones [Negative mg/dL] Negative mg/dL *NA* (10/26/2012 11:46:00) UA Protein [Negative mg/dL] Negative mg/dL (10/26/2012 11:46:00) UA Urobilinogen [0.1-1.0 mg/dL] <=1.0 mg/dL *NA* (10/26/2012 11:46:00) UA Bili [Negative] Negative *NA* (10/26/2012 11:46:00) UA Leuk Est [Negative] Negative (10/26/2012 11:46:00) UA Nitrite [Negative] Negative (10/26/2012 11:46:00) UA RBC [0-2 /HPF] 9 /HPF *HI* (10/26/2012 11:46:00) UA Bacteria [None Seen /HPF] Occasional /HPF *NA* (10/26/2012 11:46:00) UA Sq Epi [Few /LPF] Few /LPF *NA* (10/26/2012 11:46:00) UA Mucus [None Seen /LPF] Few /LPF *NA* (10/26/2012 11:46:00) BLOOD BANK RESULTS Most recent to oldest [Reference Range]: 1 ABO/Rh O NEG *Unknown* (10/26/2012 11:52:00) Antibody Scrn Negative (10/26/2012 11:52:00) Rhig Product available 1 (10/26/2012 14:10:00) 1Result Comment: 10/26/2012 14:55 DENNIS Called to Loyda at 10/26/2012 14:55. CHEMISTRY Most recent to oldest [Reference Range]: 1 Sodium Lvl [135-145 mEq/L] 139 mEq/L (10/26/2012 11:52:00) Potassium Lvl [3.5-5.1 mEq/L] 3.8 mEq/L (10/26/2012 11:52:00) Chloride Lvl [95-109 mEq/L] 103 mEq/L (10/26/2012 11:52:00) CO2 [24-32 mEq/L] 25 mEq/L (10/26/2012 11:52:00) AGAP [10.0-20.0 mEq/L] 14.8 mEq/L (10/26/2012 11:52:00) Creatinine Lvl [0.5-1.4 mg/dL] 0.5 mg/dL (10/26/2012 11:52:00) eGFR 135 mL/min/1.73m2 2 *NA* (10/26/2012 11:52:00) BUN [7-22 mg/dL] 8 mg/dL (10/26/2012 11:52:00) Glucose Lvl [70-99 mg/dL] 95 mg/dL 3 (10/26/2012 11:52:00) Calcium Lvl [8.5-10.5 mg/dL] 8.8 mg/dL (10/26/2012 11:52:00) [place] [address] mIU/mL 4 *NA* (10/26/2012 11:52:00) U Preg [Negative] Positive *ABN* (10/26/2012 11:46:00) 2Result Comment: The eGFR is calculated using the [...] be mul tiplied by the estimated BMI. 3Interpretive Data: Adult reference range values reflect the clinical guidelines of the [place] [employer]. 4Interpretive Data: Reference Range: Male 0 - 5 [...] 8,175 - 55,868 18 8,099 - 58,176 HEMATOLOGY Most recent to oldest [Reference Range]: 1 WBC [3.7-10.4 K/CMM] 7.3 K/CMM (10/26/2012 11:52:00) RBC [4.20-5.40 M/CMM] 4.43 M/CMM (10/26/2012 11:52:00) Hgb [12.0-16.0 g/dL] 14.0 g/dL (10/26/2012 11:52:00) Hct [36.0-48.0 %] 41.0 % (10/26/2012:52:00) MCV [81.0-99.0 fL] 92.6 fL (10/26/2012:52:00) MCH [27.0-31.0 pg] 31.6 pg *HI* (10/26/2012:52:00) MCHC [32.0-36.0 g/dL] 34.1 g/dL (10/26/2012 11:52:00) RDW [11.5-14.5 %] 13.7 % (10/26/2012:52:00) Platelet [133-450 K/CMM] 271 K/CMM (10/26/2012:52:00) MPV [7.4-10.4 fL] 9.0 fL (10/26/2012 11:52:00) Segs [45.0-75.0 %] 73.3 % (10/26/2012:52:00) Lymphocytes [20.0-40.0 %] 20.1 % (10/26/2012:52:00) Monocytes [2.0-12.0 %] 5.3 % (10/26/2012:52:00) Eosinophils [0.0-4.0 %] 0.8 % (10/26/2012:52:00) Basophils [0.0-1.0 %] 0.5 % (10/26/2012 11:52:00) Segs-Bands # [1.5-8.1 K/CMM] 5.3 K/CMM (10/26/2012 11:52:00) Lymphocytes # [1.0-5.5 K/CMM] 1.5 K/CMM (10/26/2012 11:52:00) Monocytes # [0.0-0.8 K/CMM] 0.4 K/CMM (10/26/2012 11:52:00) Eosinophils # [0.0-0.5 K/CMM] 0.1 K/CMM (10/26/2012 11:52:00) Basophils # [0.0-0.2 K/CMM] 0.0 K/CMM (10/26/2012 11:52:00)
--- OUTSIDE RECORDS SUMMARY | 2018-10-19 23:54 | XMS REPORT | CCD ---
Author Author Auto Generated Organization [facility] Address Unknown Phone Unavailable Care Team Providers Care Product Marketing Engineer Name Role Phone Angie Mari CP Allergies, Adverse Reactions, Alerts Substance Reaction Status NKDA Active Problem List Condition Effective Dates Status Bronchitis 02/13/2009 Resolved Medications Medication Instructions Start Date End Date Status NIFEdipine 10 mg 10 mg=1 cap, PO, Q6H, # 60 cap, 1 05/11/2013 Ordered oral capsule Refill(s) Tylenol 650 mg, 2 tab, Route: PO, Drug 05/09/2013 05/11/2013 Discontinued form: TAB, Q4H, Dosing Weight 73.182, kg, PRN Pain, Start date: 05/09/13 20:32:00, Duration: 30 day, Stop date: 06/08/13 20:31:00Do not exceed 4 gm/day. (Same as: Tylenol) Saline Flush 0.9% 5 ml, Route: IVP, Drug Form: INJ, 05/08/2013 05/11/2013 Discontinued Dosing Weight 73.182, kg, PRN, PRN Line Flush, Start date: 05/08/13 7:08:00, Stop date: 06/07/13 8:07:00(Same as: BD Posiflush) multivitamin, 1 tab, Route: PO, Drug Form: TAB, 05/08/2013 05/11/2013 Discontinued Dosing Weight 73.182, kg, Daily, Start date: 05/08/13 9:00:00, Duration: 30 day, Stop date: 06/06/13 9:00:00 Stadol 2 mg, 1 mL, Route: IVP, Drug form: 05/07/2013 05/11/2013 Discontinued INJ, Q2H, Dosing Weight 73.182, kg, PRN Pain Score 6-10, Start date: 05/07/13 3:13:00, Duration: 30 day, Stop date: 06/06/13 3:12:00(Same As: Stadol) NIFEdipine 10 mg, 1 cap, Route: PO, Drug form: 05/08/2013 05/11/2013 Discontinued CAP, Q6H, Dosing Weight 73.182, kg, Start date: 05/08/13 14:30:00, Duration: 30 day, Stop date: 06/07/13 12:00:00(Same as: Adalat, Procardia) "Avoid grapefruit and grapefruit juice Ambien CR 5 mg, 1 tab, Route: PO, Drug form: 05/10/2013 05/11/2013 Discontinued TAB, Bedtime, Dosing Weight 73.182, kg, PRN Insomnia, Start date: 05/10/13 19:38:00, Duration: 30 day, Stop date: 06/09/13 19:37:00(Same As: Ambien) penicillin G 5,000,000 unit, Route: IVPB, Drug 05/06/2013 05/06/2013 Completed potassium 5,000,000 form: PDR/INJ, ONCALL, Dosing units injection Weight 73.182, kg, Start date: 05/06/13 22:00:00, Duration: 1 doses or times(Same as: Pfizerpen) penicillin G 2,500,000 unit, Route: IVPB, 05/07/2013 05/07/2013 Discontinued potassium + Sodium ABXQ4H, Dosing Weight 73.182, kg, Chloride 0.9% IV 50 Start date: 05/07/13 2:00:00(Same mL as: Pfizerpen) magnesium sulfate 4 gm, 100 mL, Route: IVPB, Drug 05/06/2013 05/06/2013 Completed form: INJ, ONCE, Dosing Weight 73.182, kg, Loading dose; Dilute in 100 ml; Infuse over 30 minutes @ 200 ml/hr, Start date: 05/06/13 21:52:00, Duration: 1 doses or times, Stop date: 05/06/13 21:52:00 magnesium sulfate 20 500 mL, Rate: 50 ml/hr, Infuse 05/06/2013 05/07/2013 Discontinued gm/500 ml solution over: 10 hr, Route: IV, Dosing 20 gm Weight 73.182 kg, Total Volume: 500, Start date: 05/06/13 21:52:00, Duration: 30 day, Stop date: 06/05/13 21:51:00(Same as: MgSO4) calcium gluconate + 1 gm, 10 mL, Route: IVPB, ONCALL, 05/06/2013 05/07/2013 Discontinued Sodium Chloride 0.9% Dosing Weight 73.182, kg, (Maximum IV 50 mL Dose=3 gm); For Hypermagnesemia, Start date: 05/06/13 22:00:00, Duration: 30 day, Stop date: 06/05/13 22:59:00 Lactated Ringers 1,000 mL, Rate: Titrate, Dosing 05/06/2013 05/07/2013 Discontinued (titrate) IV 1,000 Weight 73.182, kg, Route: IV, Total mL Volume: 1,000, Start Date: 05/06/13 21:52:00, Duration: 30 day, Stop date: 06/05/13 21:51:00, Replace Every: 24 hr Lactated Ringers 500 mL, Rate: 500 ml/hr, Infuse 05/06/2013 05/06/2013 Completed Injection IV 500 mL over: 1 hr, Route: IV, Dosing Weight 73.182 kg, Total Volume: 500, Start date: 05/06/13 21:52:00, Duration: 1 doses or times, Stop date: 05/06/13 22:51:00 betamethasone 12 mg, 2 mL, Route: IM, Drug form: 05/06/2013 05/07/2013 Completed INJ, Q24H, Dosing Weight 73.182, kg, Start date: 05/06/13 22:00:00, Duration: 2 doses or times, Stop date: 05/07/13 22:00:00(betamethasone acetate-sodium phosphate 6 mg/ml INJ) (Same As: Celestone Soluspan) penicillin G 2,500,000 unit, Route: IVPB, Drug 05/07/2013 05/07/2013 Discontinued potassium 2,500,000 form: PDR/INJ, ABXQ4H, Dosing units/50 mL Weight 73.182, kg, Start date: intravenous solution 05/07/13 13:00:00, Stop date: + Sodium Chloride 05/13/13 0:00:00(Same as: 0.9% IV 50 mL Pfizerpen) ferrous sulfate 325 325 mg=1 tab, PO, Daily, # 30 tab, 05/06/2013 Ordered mg oral enteric 0 Refill(s) coated tablet 1 Plus 1 1 tab, PO, Daily, # 30 tab, 0 05/06/2013 Ordered oral tablet Refill(s) Vital Signs Most recent to oldest [Reference Range]: 1 Height 154.94 cm (05/06/2013 21:15:00) Weight 73.182 kg (05/06/2013 21:15:00) Body Mass Index 30.48 m2 (05/06/2013 21:15:00) Results CHEM PANEL Most recent to oldest [Reference Range]: 1 2 Creatinine Lvl [0.5-1.4 mg/dL] 0.5 mg/dL (05/10/2013:26:00) 0.4 mg/dL *LOW* (05/06/2013 22:08:44) eGFR 135 mL/min/1.73m2 1 *NA* (05/10/2013 20:26:00) 145 mL/min/1.73m2 2 *NA* (05/06/2013 22:08:44) Uric Acid [2.5-7.0 mg/dL] 3.5 mg/dL (05/06/2013 22:08:44) ALT [0-65 unit/L] 34 unit/L (05/06/2013 22:08:44) AST [0-37 unit/L] 33 unit/L (05/06/2013 22:08:44) LDH [98-192 unit/L] 284 unit/L *HI* (05/06/2013 22:08:44) 1Result Comment: The eGFR is calculated using the [...] be mul tiplied by the estimated BMI. 2Result Comment: The eGFR is calculated using [...] be mul tiplied by the estimated BMI. URINE CHEM Most recent to oldest [Reference Range]: 1 2 U24 Protein [<=148 mg/24hrs] 425 mg/24hrs 3 *HI* (05/09/2013 18:49:00) 760 mg/24hrs 4 *HI* (05/07/2013 22:30:00) Ur Protein [<=11.8 mg/dL] 14.3 mg/dL *HI* (05/09/2013 18:49:00) 28.4 mg/dL *HI* (05/07/2013 22:30:00) U Prot 24Hrs Col 24 (05/09/2013 18:49:00) 24 (05/07/2013 22:30:00) TV Protein (ml) [600-1600 mL] 2971 mL *HI* (05/09/2013 18:49:00) 2676 mL *HI* (05/07/2013 22:30:00) U24 Cr Clear [88-128 mL/min] 144 mL/min *NA* (05/09/2013 18:49:00) 119 mL/min (05/07/2013 22:30:00) Ur Creat 35.0 mg/dL 5 *NA* (05/09/2013 18:49:00) 35.7 mg/dL 6 *NA* (05/07/2013 22:30:00) BSA Cr Clear 1.74 *NA* (05/09/2013 18:49:00) 2.41 *NA* (05/07/2013 22:30:00) WT Crcl 161 lb *NA* (05/09/2013 18:49:00) 73 lb *NA* (05/07/2013 22:30:00) HT Crcl 62 inch *NA* (05/09/2013 18:49:00) 155 inch *NA* (05/07/2013 22:30:00) TV CrCl 24H [600-1600 mL] 2971 mL *HI* (05/09/2013 18:49:00) 2676 mL *HI* (05/07/2013 22:30:00) 3Interpretive Data: Reference value applies to 24-hour collection. Specimens collected for periods other than 24 hours will be reported in concentration units. Urinary protein levels may rise to 300 mg/24 hours in healthy individuals after vigorous exercise. Increased urine protein levels (false-positives) may be due to contamination of urine with menstrual blood, prostratic secretions, or semen. 4Interpretive Data: Reference value applies to 24-hour collection. Specimens collected for periods other than 24 hours will be reported in concentration units. Urinary protein levels may rise to 300 mg/24 hours in healthy individuals after vigorous exercise. Increased urine protein levels (false-positives) may be due to contamination of urine with menstrual blood, prostratic secretions, or semen. 5Interpretive Data: No established reference ranges. 6Interpretive Data: No established reference ranges. URINE AND STOOL Most recent to oldest [Reference Range]: 1 2 UA Turbidity [Clear] Slight *ABN* (05/06/2013 22:08:05) UA Color [Yellow] Yellow *NA* (05/06/2013 22:08:05) UA pH [5.0-8.0] 6.5 (05/06/2013 22:08:05) UA Spec Grav [<=1.030] 1.011 (05/06/2013 22:08:05) UA Glucose [Negative mg/dL] Negative mg/dL *NA* (05/06/2013 22:08:05) UA Blood [Negative] Negative (05/06/2013 22:08:05) UA Ketones TR *NA* (05/06/2013 22:08:05) UA Protein [Negative mg/dL] Negative mg/dL (05/06/2013 22:08:05) UA Urobilinogen [0.1-1.0 mg/dL] <=1.0 mg/dL *NA* (05/06/2013 22:08:05) UA Bili [Negative] Negative *NA* (05/06/2013 22:08:05) UA Leuk Est [Negative] Negative (05/06/2013 22:08:05) UA Nitrite [Negative] Negative (05/06/2013 22:08:05) UA WBC [0-5 /HPF] 1 /HPF (05/06/2013 22:08:05) UA Bacteria [None Seen /HPF] Moderate /HPF *ABN* (05/06/2013 22:08:05) UA Sq Epi [Few /LPF] Moderate /LPF *ABN* (05/06/2013 22:08:05) UA Mucus [None Seen /LPF] Few /LPF *NA* (05/06/2013 22:08:05) BLOOD BANK RESULTS Most recent to oldest [Reference Range]: 1 2 ABO/Rh O NEG *Unknown* (05/10/2013 20:26:00) O NEG *Unknown* (05/06/2013 22:40:00) Antibody Scrn Positive (05/10/2013 20:26:00) Positive 7 (05/06/2013 22:40:00) AB Int Anti-D *Unknown* (05/06/2013 22:40:00) Path AB This 27-year-old woman whose blood [...] in obtaining compatible blood is expected. The patient s electronic medical record has been reviewed for relevant information. I have reviewed the test results and concur with the resident's interpretation. CPT: 08253-ZH *NA* (05/06/2013 22:40:00) 7Result Comment: 05/07/2013 00:19 [id number] "Significant Findings called to José MACKEY at 0018 by [email or web address] Back OK." 05/07/2013 00:16 [id number] Patient has unexpected antibodies. Allow extra time for additional crossmatches. IMMUNOLOGY Most recent to oldest [Reference Range]: 1 2 RPR [Non Reactive] Non Reactive (05/06/2013 22:08:00) HIV. [Negative] Negative *NA* (05/06/2013 22:08:00) Hep Bs Ag [Negative] Negative *NA* (05/06/2013 22:08:44) HEMATOLOGY Most recent to oldest [Reference Range]: 1 2 WBC [3.7-10.4 K/CMM] 8.5 K/CMM (05/06/2013 22:08:44) RBC [4.20-5.40 M/CMM] 4.22 M/CMM (05/06/2013 22:08:44) Hgb [12.0-16.0 g/dL] 12.3 g/dL (05/06/2013 22:08:44) Hct [36.0-48.0 %] 37.0 % (05/06/2013 22:08:44) MCV [81.0-99.0 fL] 87.6 fL (05/06/2013 22:08:44) MCH [27.0-31.0 pg] 29.2 pg (05/06/2013 22:08:44) MCHC [32.0-36.0 g/dL] 33.3 g/dL (05/06/2013 22:08:44) RDW [11.5-14.5 %] 14.6 % *HI* (05/06/2013 22:08:44) Platelet [133-450 K/CMM] 270 K/CMM (05/06/2013 22:08:44) MPV [7.4-10.4 fL] 8.9 fL (05/06/2013 22:08:44) Segs [45.0-75.0 %] 63.2 % (05/06/2013 22:08:44) Lymphocytes [20.0-40.0 %] 29.6 % (05/06/2013 22:08:44) Monocytes [2.0-12.0 %] 6.1 % (05/06/2013:08:44) Eosinophils [0.0-4.0 %] 0.7 % (05/06/2013 22:08:44) Basophils [0.0-1.0 %] 0.4 % (05/06/2013 22:08:44) Segs-Bands # [1.5-8.1 K/CMM] 5.4 K/CMM (05/06/2013 22:08:44) Lymphocytes # [1.0-5.5 K/CMM] 2.5 K/CMM (05/06/2013:08:44) Monocytes # [0.0-0.8 K/CMM] 0.5 K/CMM (05/06/2013:08:44) Eosinophils # [0.0-0.5 K/CMM] 0.1 K/CMM (05/06/2013 22:08:44) PT [12.0-14.7 seconds] 12.1 seconds (05/07/2013 00:00:40) INR [0.85-1.17] 0.90 8 (05/07/2013 00:00:40) Thrombin Time [15.0-21.2 seconds] 14.9 seconds *LOW* (05/07/2013 00:00:40) Fibrinogen Lvl [230-510 mg/dL] 590 mg/dL *HI* (05/07/2013 00:00:40) D-Dimer 1.29 ug/mL FEU 9 *NA* (05/07/2013 00:00:40) PTT [22.9-35.8 seconds] 24.1 seconds 10 (05/07/2013 00:00:40) 8Interpretive Data: RECOMMENDED RANGES FOR PROTIME INR: 2.0-3.0 for most medical and surgical thromboembolic states. 2.5-3.5 for artificial heart valves and recurrent embolism. INR SHOULD BE USED ONLY FOR PATIENTS ON STABLE ANTICOAGULANT THERAPY. 9Interpretive Data: In DIC, quantitative D-Dimer is generally greater than 0.66 ug/mL FEU. Values of quantitative D-Dimer less than 0.40 ug/mL FEU have been reported to be associated with a low probability of deep vein thrombosis/pulmonary embolism. This test alone should not be used to rule out DVT/PE. 10Interpretive Data: Heparin Therapeutic Range: 57 - 92 Seconds
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
--- OUTSIDE RECORDS SUMMARY | 2018-10-19 23:55 | XMS REPORT | Summary of Care ---
Author Author [facility] Organization [facility] Address Unknown Phone Unavailable Encounter HQ Jhonny(RAY) [id number] Date(s): 09/03/17 - 09/04/17 [facility] [address] [place] [address]- Discharge Disposition: Home or Self Care Attending Physician: Efren Vela MD Admitting Physician: Efren Vela MD Vital Signs 1 2 3 Most recent to oldest [Reference Range]: 152.4 cm (09/03/17 1:01 PM) 152.4 cm (09/03/17 8:30 AM) Height 97.4 DegF (09/04/17 11:14 AM) 98.2 DegF (09/04/17 7:19 AM) 97.6 DegF (09/04/17 3:14 AM) Temperature Oral [96.4-99.1 DegF] 110/63 mmHg (09/04/17 11:14 AM) 108/71 mmHg (09/04/17 7:19 AM) 99/63 mmHg (09/04/17 3:14 AM) Blood Pressure [90-140/60-90 mmHg] 18 BRMIN (09/04/17 11:14 AM) 18 BRMIN (09/04/17 3:14 AM) 16 BRMIN (09/03/17 11:19 PM) Respiratory Rate [14-20 BRMIN] 58 bpm *LOW* (09/04/17 11:14 AM) 61 bpm (09/04/17 7:19 AM) 56 bpm *LOW* (09/04/17 3:14 AM) Peripheral Pulse Rate [60-100 bpm] 68.001 kg (09/04/17 12:05 PM) 68.182 kg (09/03/17 1:01 PM) 72.727 kg (09/03/17 8:30 AM) Weight 29.36 m2 (09/03/17 1:01 PM) 31.31 m2 (09/03/17 8:30 AM) Body Mass Index Problem List Condition Effective Dates Status Health Status Informant Bronchitis(Confirmed 02/13/09 Resolved ) Flu(Confirmed) 03/2013 Resolved Vaginal 06/03/13 - 06/03/13 Resolved delivery(Confirmed) Allergies, Adverse Reactions, Alerts Substance Reaction Severity Status NKDA Active Medications acetaminophen 650 mg, 2 tab, Route: PO, Drug form: TAB, Q4H, Dosing Weight 72.727, kg, PRN Yvonne n 1-3/Temp > 100.4 F, Start date: 09/03/17 12:18:00 CDT, Duration: 30 day, Stop date: 10/03/17 12:17:00 CDT Notes: Do not exceed 4 gm/day. (Same as: Tylenol) Start Date: 09/03/17 Stop Date: 09/04/17 Status: Discontinued aspirin 325 mg, 1 tab, Route: PO, Drug form: TAB, ONCE, Dosing Weight 72.727, kg, Priori ty: STAT, Start date: 09/03/17 11:22:00 CDT, Stop date: 09/03/17 11:22:00 CDT Notes: Take with food. Start Date: 09/03/17 Stop Date: 09/03/17 Status: Completed aspirin 81 mg, 1 tab, Route: PO, Drug form: CHEWTAB, Daily, Dosing Weight 72.727, kg, St art date: 09/04/17 9:00:00 CDT, Duration: 30 day, Stop date: 10/03/17 9:00:00 CD T Notes: Take with food. Start Date: 09/04/17 Stop Date: 09/04/17 Status: Discontinued docusate 100 mg, 1 cap, Route: PO, Drug form: CAP, BID, Dosing Weight 72.727, kg, Start d ate: 09/03/17 17:00:00 CDT, Duration: 30 day, Stop date: 10/03/17 9:00:00 CDT Notes: (Same as: Colace) (Do Not Crush) Start Date: 09/03/17 Stop Date: 09/04/17 Status: Discontinued ondansetron 4 mg, 1 tab, Route: PO, Drug form: TAB, Q6H, Dosing Weight 72.727, kg, PRN Nause a & Vomiting, Start date: 09/03/17 12:18:00 CDT, Duration: 30 day, Stop date: 10/03/17 12:17:00 CDT Notes: (Same as: Zofran) Start Date: 09/03/17 Stop Date: 09/04/17 Status: Discontinued Saline Flush 0.9% 10 mL, Route: IVP, Drug Form: INJ, Dosing Weight 72.727, kg, PRN, PRN Line Flush , Start date: 09/03/17 10:26:00 CDT, Duration: 30 day, Stop date: 10/03/17 10:25 :00 CDT Notes: (Same as: BD Posiflush) Start Date: 09/03/17 Stop Date: 09/04/17 Status: Discontinued Results ELECTROLYTES Most recent to 1 2 oldest [Reference Range]: Sodium Lvl [135-145 141 mEq/L 140 mEq/L mEq/L] (09/04/17 3:27 AM) (09/03/17 10:29 AM) Potassium Lvl 4.0 mEq/L 3.7 mEq/L [3.5-5.1 mEq/L] (09/04/17 3:27 AM) (09/03/17 10:29 AM) Chloride Lvl [95-109 106 mEq/L 104 mEq/L mEq/L] (09/04/17 3:27 AM) (09/03/17 10:29 AM) CO2 [24-32 mEq/L] 27 mEq/L 26 mEq/L (09/04/17 3:27 AM) (09/03/17 10:29 AM) AGAP [10.0-20.0 12.0 mEq/L 13.7 mEq/L mEq/L] (09/04/17 3:27 AM) (09/03/17 10:29 AM) CHEM PANEL Most recent to 1 2 oldest [Reference Range]: Creatinine Lvl 0.56 mg/dL 0.51 mg/dL [0.50-1.40 mg/dL] (09/04/17 3:27 AM) (09/03/17 10:29 AM) eGFR 125 mL/min/1.73m2 1 129 mL/min/1.73m2 2 *NA* *NA* (09/04/17 3:27 AM) (09/03/17 10:29 AM) BUN [7-22 mg/dL] 12 mg/dL 9 mg/dL (09/04/17 3:27 AM) (09/03/17 10:29 AM) Glucose Lvl [70-99 99 mg/dL 89 mg/dL mg/dL] (09/04/17 3:27 AM) (09/03/17 10:29 AM) Calcium Lvl 8.9 mg/dL 9.0 mg/dL [8.5-10.5 mg/dL] (09/04/17 3:27 AM) (09/03/17 10:29 AM) 1Result Comment: The eGFR is calculated using [...] be mul tiplied by the estimated BMI. CARDIAC ENZYMES Most recent to 1 2 oldest [Reference Range]: Total CK [12-191 154 unit/L unit/L] (09/03/17 10:29 AM) Troponin-I <0.02 ng/mL [0.00-0.40 ng/mL] (09/03/17 10:29 AM) LIPIDS Most recent to 1 oldest [Reference Range]: CHD Risk [3.90-5.80] 3.61 *LOW* (09/04/17 3:27 AM) Chol [<=199 mg/dL] 137 mg/dL (09/04/17 3:27 AM) Trig [<=149 mg/dL] 201 mg/dL *HI* (09/04/17 3:27 AM) HDL [>=61 mg/dL] 38 mg/dL *LOW* (09/04/17 3:27 AM) LDL (Calculated) 59 mg/dL [<=99 mg/dL] (09/04/17 3:27 AM) VLDL 40 *NA* (09/04/17 3:27 AM) SPECIAL CHEMISTRY Most recent to 1 oldest [Reference Range]: Hgb A1C [<=5.6 %] 5.4 % (09/03/17 1:30 PM) ENDOCRINOLOGY Most recent to [Reference Range]: S Preg [Negative] Negative *NA* (09/03/17 1:30 PM) URINE CHEM Most recent to 03 26 oldest [Reference Range]: U Preg [Negative] Negative (09/04/17 9:11 AM) IMMUNOLOGY Most recent to [Reference Range]: JERRY [Negative] Negative (09/03/17 1:30 PM) Cardiolipin IgA 2.1 APL-U/mL [<=19.9 APL-U/mL] (09/03/17 1:30 PM) Cardiolipin IgG 2.5 GPL-U/mL [<=19.9 GPL-U/mL] (09/03/17 1:30 PM) Cardiolipin IgM 6.2 MPL-U/mL [<=19.9 MPL-U/mL] (09/03/17 1:30 PM) Beta2-Glycoprotein 0.3 unit/mL IgM [<=19.9 unit/mL] (09/03/17 1:30 PM) Beta2-Glycoprotein 9.3 unit/mL IgG [<=19.9 unit/mL] (09/03/17 1:30 PM) Beta2-Glycoprotein 0.8 unit/mL IgA [<=19.9 unit/mL] (09/03/17 1:30 PM) Homocyst Tot 6.4 uMol/L [3.7-13.9 uMol/L] (09/03/17 1:30 PM) HEMATOLOGY Most recent to 1 2 oldest [Reference Range]: WBC [3.7-10.4 K/CMM] 7.2 K/CMM 5.4 K/CMM (09/04/17 3:27 AM) (09/03/17 10:29 AM) RBC [4.20-5.40 4.40 M/CMM 4.59 M/CMM M/CMM] (09/04/17 3:27 AM) (09/03/17 10:29 AM) Hgb [12.0-16.0 g/dL] 14.0 g/dL 14.2 g/dL (09/04/17 3:27 AM) (09/03/17 10:29 AM) Hct [36.0-48.0 %] 40.1 % 42.0 % (09/04/17 3:27 AM) (09/03/17 10:29 AM) MCV [80.0-98.0 fL] 91.2 fL 91.5 fL (09/04/17 3:27 AM) (09/03/17 10:29 AM) MCH [27.0-31.0 pg] 31.9 pg 30.9 pg *HI* (09/03/17 10:29 AM) (09/04/17 3:27 AM) MCHC [32.0-36.0 35.0 g/dL 33.7 g/dL g/dL] (09/04/17 3:27 AM) (09/03/17 10:29 AM) RDW [11.5-14.5 %] 12.9 % 12.9 % (09/04/17 3:27 AM) (09/03/17 10:29 AM) MPV [7.4-10.4 fL] 9.1 fL 9.1 fL (09/04/17 3:27 AM) (09/03/17 10:29 AM) Platelet [133-450 293 K/CMM 296 K/CMM K/CMM] (09/04/17 3:27 AM) (09/03/17 10:29 AM) Segs [45.0-75.0 %] 52.1 % 54.9 % (09/04/17 3:27 AM) (09/03/17 10:29 AM) Lymphocytes 39.9 % 35.5 % [20.0-40.0 %] (09/04/17 3:27 AM) (09/03/17 10:29 AM) Monocytes [2.0-12.0 5.2 % 6.7 % %] (09/04/17 3:27 AM) (09/03/17 10:29 AM) Eosinophils [0.0-4.0 2.1 % 1.5 % %] (09/04/17 3:27 AM) (09/03/17 10:29 AM) Basophils [0.0-1.0 0.7 % 1.4 % %] (09/04/17 3:27 AM) *HI* (09/03/17 10:29 AM) Segs-Bands # 3.8 K/CMM 3.0 K/CMM [1.5-8.1 K/CMM] (09/04/17 3:27 AM) (09/03/17 10:29 AM) Lymphocytes # 2.9 K/CMM 1.9 K/CMM [1.0-5.5 K/CMM] (09/04/17 3:27 AM) (09/03/17 10:29 AM) Monocytes # [0.0-0.8 0.4 K/CMM 0.4 K/CMM K/CMM] (09/04/17 3:27 AM) (09/03/17 10:29 AM) Eosinophils # 0.2 K/CMM 0.1 K/CMM [0.0-0.5 K/CMM] (09/04/17 3:27 AM) (09/03/17 10:29 AM) Basophils # [0.0-0.2 0.1 K/CMM K/CMM] (09/03/17 10:29 AM) PT [12.0-14.7 13.5 seconds seconds] (09/03/17 10:29 AM) INR [0.85-1.17] 1.03 (09/03/17 10:29 AM) F2 Mutation PCR Negative (09/03/17 1:30 PM) F2 Mut Interp FACTOR II PT: Negative INTERPRETATION: Molecular analysis for the Factor II (Prothrombin) [id number] mutation was negative. Other causes of elevated [...] uses the FDA-cleared Lety Factor II (Prothrombin) [id number] IVD (Polymerase chain reaction/FRET detection)kit, [employer] LC Instrument and the Lety LightCycler 1.2 Instrument. A 165-bp fragment of Factor II gene(FII) containing the Factor II [id number] sequence is amplified in the assay. The assay is designed to detect the [id number] mutation only. Other causes of elevated prothrombin levels and hereditary forms of venous thrombosis are not ruled out. However, the melting curve analysis may implicate the presence of a possible rare mutation at position 68427 (Further testing will be recommended in the report). A minimum detection level is 198 copies of Factor II per reaction. The level of agreement between the Factor II(Prothrombin) [id number] Kit and sequence analysis was 98.9%. The test result must be interpreted along with the patient's clinical history and revelant laboratory data. This assay has been validated by [facility]. *NA* (09/03/17 1:30 PM) F5 Leiden PCR Negative (09/03/17 1:30 PM) F5 Leiden Intrp FACTOR V LEIDEN: Negative [...] Factor V Leiden IVD(Poymerase chain reaction/FRET detection)kit, Lety [employer] LC Instrument and the Lety LightCycler 1.2 [...] data. This assay has been validated by [facility]. *NA* (09/03/17 1:30 PM) AT III Func [77-140 118 % %] (09/03/17 1:30 PM) PTT [22.9-35.8 34.1 seconds seconds] (09/03/17 10:29 AM) dRVV Ratio [<=1.20] 0.87 (09/03/17 1:30 PM) Hex Phos N Positive [Negative] (09/03/17 1:30 PM) Lup Interp The DRVVT screen for lupus [...] antibody assays is recommended. Interpretation performed at [facility]. *NA* (09/03/17 1:30 PM) Protein C Func 140 % [72-147 %] (09/03/17 1:30 PM) Protein S Func 147 % [54-137 %] *HI* (09/03/17 1:30 PM) Immunizations No data available for this section Procedures No data available for this section Social History Social History Type Response Alcohol Type Wine. Frequency: 1-2 times per month. Smoking Status Never smoker; Exposure to Tobacco Smoke None; Cigarette Smoking Last 365 Days No; Reg Smoking Cessation Counseling No entered on: 09/03/17 Assessment and Plan Extracted from: Title: [facility] Prov[facility] Author: Solomon Koehler MD Date: 09/05/17 Hospitalist Service Discharge Summary [facility] Hospitalist Service Discharge Summary PATIENT NAME:DAPHNE TALAVERA ATTENDING: SOLOMON MOORE JR, MD ADMISSION DATE: 09/03/2017 08:24 DISCHARGE DATE: 09/04/2017 16:02 DISCHARGE DIAGNOSIS: Anesthesia of skin (R20.0) Possible transient ischemic attack CONSULTING PHYSICIANS/SERVICES: Js Shaffer MDOffice: Service: Neurology DISCHARGE CONDITION: Fair HISTORY OF [...] planning discharge which included bedside counseling. Extracted from: Title: Clinical Document Author: Js Shaffer MD Date: 09/04/17 Progress Note - Daily [facility] Completed: Aug, 11:26 by Js Shaffer MD RM: CCDU - 06, SE SHAHID [id number] (: 1985) F Attending: Efren Vela MDPhone: Service: Internal Medicine Reason for Admission: ARM NUMBNESS Working DRG: Code status: Full Code [Ordered]Current diet: Isolation: No Isolation/Standard Precautions Allergies: NKDA SUBJECTIVE She still feels like her left arm is a little numb. She has a posterior headache - pulling sensation. No throbbing, photopphobia, nausea, vision changes. She is overall feeling better. No fever OBJECTIVE 24hr Labs 09/04 0911 U PregNegative 09/04 0327 Snac729 Xayy946 H HDL38 L LDL (Calculated)59 VLDL40 CHD Risk3.61 L Glucose Lvl99 BUN12 Creatinine Lvl0.56 Sodium Svw463 Potassium Lvl4.0 Chloride Jgy602 CO227 AGAP12.0 Calcium Lvl8.9 zWZU112 WBC7.2 RBC4.40 Hgb14.0 Hct40.1 MCV91.2 MCH31.9 H MCHC35.0 RDW12.9 Oynthfyg294 MPV9.1 Segs52.1 Monocytes5.2 Tfstbuobjwc20.9 Eosinophils2.1 Basophils0.7 Segs-Bands #3.8 Lymphocytes #2.9 Monocytes #0.4 Eosinophils #0.2 09/03 1330 Hgb A1C5.4 S PregNegative Homocyst Tot6.4 Ramos still necessary (Yes/No): Line still necessary (Yes/No): VitalsTmp(F)[id number] 09/04 07:1997.601581/71--98--- 09/04 03:1497.79421/160516--- 09/03 23:1997.204573/2070375--- 09/03 19:2698.197933/266023--- 09/03 15:3298.666684/119908--- 24 Hr Tmax: 98.4F (36.89c) at 09/03 23:19Vital Signs are the last 5 in the past 48 hours. DateWt(kg)Wt(lb)Ht(cm)Ht(in)Method 09/03 (initial) 72.73 160.00Estimated 47366.40 60.00Stated I&ORecordInOutBal 24hr Tot 0 0 0 24hr Tot [...] in neurology clinic in 2 weeks Addendum Incidental finding of chronic neurocystercercosis lesion on MRI - no further work up by inidcated for this at this time Js Shaffer MD on 09/04/2017 11:29 Extracted from: Title: Clinical Document Author: Efren Vela MD Date: 09/03/17 Date of admission: 09/03/17 Reason for admission 1. Left arm paresthesias, TIA workup History of present illness Ms. Talavera is a 32-year-old woman with no significant [...] Hemoglobin of 14. Assessment and plan Ms. Talavera is a 32-year-old woman with no significant [...] urine test. DVT prophylaxis: SCD Disposition: Likely 1 2 midnights
--- OUTSIDE RECORDS SUMMARY | 2018-10-19 23:55 | XMS REPORT ---
Author Author [facility] Address Unknown Phone Unavailable Care Team Providers Care Face Worker Name Role Phone Unavailable Unavailable Payers Payer Name Policy Type Policy Number Effective Date Expiration Date Problems This patient has no known problems. Allergies, Adverse Reactions, Alerts Allergy Name Allergy Type Status Severity Reaction(s) Onset Date Inactive Date Treating Clinician Comments No Known Allergies DA Active U 2018-06-03 00:00:00 Medications This patient has no known medications. Results Test Description Test Time Test Comments Text Results Atomic Results Result Comments CBC W/AUTO DIFF 2018-08-30 09:43:00 WHITE BLOOD CELL (test code=WBC) 9.03 x10 3/uL 4.5-11.0 RED BLOOD CELL (test code=RBC) 2.63 x10 6/uL 3.54-5.02 HEMOGLOBIN (test code=HGB) 8.1 g/dL 11.0-15.0 HEMATOCRIT (test code=HCT) 24.6 % 33.0-45.0 MEAN CELL VOLUME (test code=MCV) 93.5 fL 81.0-99.0 MEAN CELL HGB (test code=MCH) 30.8 pg 27.0-33.0 MEAN CELL HGB CONCETRATION (test code=MCHC) 32.9 g/dL 33.0-37.0 RED CELL DISTRIBUTION WIDTH CV (test code=RDW) 14.4 % 11.5-14.5 RED CELL DISTRIBUTION WIDTH SD (test code=RDW-SD) 48.9 fL 37.0-54.0 PLATELET COUNT (test code=PLT) 237 x10 3/uL 150-400 MEAN PLATELET VOLUME (test code=MPV) 10.4 fL 7.0-9.0 NEUTROPHIL % (test code=NT%) 59.7 % 56.0-77.0 IMMATURE GRANULOCYTE % (test code=IG%) 1.3 % 0.0-2.0 LYMPHOCYTE % (test code=LY%) 30.7 % 14.0-32.0 MONOCYTE % (test code=MO%) 7.0 % 4.8-9.0 EOSINOPHIL % (test code=EO%) 1.0 % 0.3-3.7 BASOPHIL % (test code=BA%) 0.3 % 0.0-2.0 NUCLEATED RBC % (test code=NRBC%) 0.0 % 0-0 NEUTROPHIL # (test code=NT#) 5.39 x10 3/uL 2.0-7.6 IMMATURE GRANULOCYTE # (test code=IG#) 0.12 x10 3/uL 0.00-0.03 LYMPHOCYTE # (test code=LY#) 2.77 x10 3/uL 1.0-3.8 MONOCYTE # (test code=MO#) 0.63 x10 3/uL 0.1-0.8 EOSINOPHIL # (test code=EO#) 0.09 x10 3/uL 0.0-0.2 BASOPHIL # (test code=BA#) 0.03 x10 3/uL 0.0-0.2 NUCLEATED RBC # (test code=NRBC#) 0.00 x10 3/uL 0.0-0.1 MANUAL DIFF REQUIRED (test code=MDIFF) NO RAPID PLASMA [id number] 10:22:00* Test Item Value Reference Range Comments RAPID PLASMA REAGIN (test code=RPR) NONREACTIVE NONREACTIVE AG HEPATITIS B [id number] 10:22:00* Test Item Value Reference Range Comments AG HEPATITIS B SURFACE (test code=HBSAG) NON REACTIVE INDEX NonReactive AB HIV 1 10:22:00* Test Item Value Reference Range Comments AB HIV 1 2 (test code=[id number]) NONREACTIVE INDEX NONREACTIVE CORD ARTERIAL BLOOD [id number] 00:27:00* Test Item Value Reference Range Comments CORD BLOOD PH (test code=PH/C) 7.32 7.20-7.30 CORD BLOOD PCO2 (test code=PCO2/C) 49 MMHG 45-50 CORD BLOOD PO2 (test code=PO2/C) 18 mmHg 15-25 CORD BLOOD HCO3 (test code=HCO3/C) 26 mmol/L 15-25 BASE EXCESS CORD (test code=BROOKE/C) -1.0 mmol/L -5-5 O2 SATURATION (test code=O2S/C) 23 % 25-45 RAPID PLASMA [id number] 20:46:00* Test Item Value Reference Range Comments RAPID PLASMA REAGIN (test code=RPR) NONREACTIVE AG HEPATITIS B [id number] 20:46:00* Test Item Value Reference Range Comments AG HEPATITIS B SURFACE (test code=HBSAG) NON REACTIVE INDEX NonReactive AB HIV 1 20:46:00* Test Item Value Reference Range Comments AB HIV 1 2 (test code=[id number]) NONREACTIVE INDEX NONREACTIVE CBC W/AUTO [id number] 19:33:00* Test Item Value Reference Range Comments WHITE BLOOD CELL (test code=WBC) 9.02 x10 3/uL 4.5-11.0 RED BLOOD CELL (test code=RBC) 3.84 x10 6/uL 3.54-5.02 HEMOGLOBIN (test code=HGB) 11.7 g/dL 11.0-15.0 HEMATOCRIT (test code=HCT) 35.3 % 33.0-45.0 MEAN CELL VOLUME (test code=MCV) 91.9 fL 81.0-99.0 MEAN CELL HGB (test code=MCH) 30.5 pg 27.0-33.0 MEAN CELL HGB CONCETRATION (test code=MCHC) 33.1 g/dL 33.0-37.0 RED CELL DISTRIBUTION WIDTH CV (test code=RDW) 14.3 % 11.5-14.5 RED CELL DISTRIBUTION WIDTH SD (test code=RDW-SD) 47.8 fL 37.0-54.0 PLATELET COUNT (test code=PLT) 284 x10 3/uL 150-400 MEAN PLATELET VOLUME (test code=MPV) 10.0 fL 7.0-9.0 NEUTROPHIL % (test code=NT%) 67.3 % 56.0-77.0 IMMATURE GRANULOCYTE % (test code=IG%) 1.0 % 0.0-2.0 LYMPHOCYTE % (test code=LY%) 25.1 % 14.0-32.0 MONOCYTE % (test code=MO%) 5.7 % 4.8-9.0 EOSINOPHIL % (test code=EO%) 0.6 % 0.3-3.7 BASOPHIL % (test code=BA%) 0.3 % 0.0-2.0 NUCLEATED RBC % (test code=NRBC%) 0.0 % 0-0 NEUTROPHIL # (test code=NT#) 6.08 x10 3/uL 2.0-7.6 IMMATURE GRANULOCYTE # (test code=IG#) 0.09 x10 3/uL 0.00-0.03 LYMPHOCYTE # (test code=LY#) 2.26 x10 3/uL 1.0-3.8 MONOCYTE # (test code=MO#) 0.51 x10 3/uL 0.1-0.8 EOSINOPHIL # (test code=EO#) 0.05 x10 3/uL 0.0-0.2 BASOPHIL # (test code=BA#) 0.03 x10 3/uL 0.0-0.2 NUCLEATED RBC # (test code=NRBC#) 0.00 x10 3/uL 0.0-0.1 MANUAL DIFF REQUIRED (test code=MDIFF) NO [id number] 19:30:00* Test Item Value Reference Range Comments GLUBED (test code=GLUBED) 74 MG/DL 70-110 Performed by certified dielectric machine operator at [facility] BASIC METABOLIC [id number] 23:49:00* Test Item Value Reference Range Comments SODIUM (test code=NA) 136 mEq/L 134-147 POTASSIUM (test code=K) 3.4 mEq/L 3.4-5.0 CHLORIDE (test code=CL) 105 mEq/L 100-108 CARBON DIOXIDE (test code=CO2) 25 mEq/L 21-33 ANION GAP (test code=GAP) 9 0-20 GLUCOSE (test code=GLU) 73 mg/dL 70-110 BLOOD UREA NITROGEN (test code=BUN) 5 mg/dL 7-18 GLOMERULAR FILTRATION RATE (test code=GFR) 261.2 105-110 Units of measure=ml/min/1.73 m2 CREATININE (test code=CREAT) 0.3 mg/dL 0.6-1.3 CALCIUM (test code=CA) 8.5 mg/dL 8.0-10.5 URINALYSIS [id number] 23:40:00* Test Item Value Reference Range Comments UA COLOR (test code=COLU) YELLOW YEL/STRAW UA APPEARANCE (test code=APPU) CLOUDY CLEAR UA GLUCOSE DIPSTICK (test code=DGLUU) 1+ NEGATIVE UA BILIRUBIN DIPSTICK (test code=BILU) NEGATIVE NEGATIVE UA KETONE DIPSTICK (test code=KETU) TRACE NEGATIVE UA SPECIFIC GRAVITY (test code=SGU) 1.026 1.005-1.030 UA BLOOD DIPSTICK (test code=SPIKE) NEGATIVE NEGATIVE UA PH DIPSTICK (test code=DOTTIE) 6.0 5.0-7.0 UA PROTEIN DIPSTICK (test code=PROU) NEGATIVE NEGATIVE UA UROBILINIOGEN DIPSTICK (test code=URO) 2.0 mg/dL 0.2-1.0 UA NITRITE DIPSTICK (test code=WALDO) NEGATIVE NEGATIVE UA LEUKOCYTE ESTERASE DIPSTICK (test code=LEUU) TRACE NEGATIVE UA WBC (test code=WBCU) 0-3 WBC/HPF 0-3 UA RBC (test code=RBCU) 0-3 RBC/HPF 0-3 UA BACTERIA (test code=BACU) NONE SEEN /HPF NONE SEEN UA SQUAMOUS CELLS (test code=SQU) 26-35 /HPF NONE SEEN UA CALCIUM OXALATE CRYSTALS (test code=CAOXU) 1+ /HPF NONE SEEN UA MUCUS (test code=MUCU) 4+ /LPF NONE SEEN CBC W/AUTO [id number] 23:22:00* Test Item Value Reference Range Comments WHITE BLOOD CELL (test code=WBC) 7.57 x10 3/uL 4.5-11.0 RED BLOOD CELL (test code=RBC) 3.60 x10 6/uL 3.54-5.02 HEMOGLOBIN (test code=HGB) 11.5 g/dL 11.0-15.0 HEMATOCRIT (test code=HCT) 34.6 % 33.0-45.0 MEAN CELL VOLUME (test code=MCV) 96.1 fL 81.0-99.0 MEAN CELL HGB (test code=MCH) 31.9 pg 27.0-33.0 MEAN CELL HGB CONCETRATION (test code=MCHC) 33.2 g/dL 33.0-37.0 RED CELL DISTRIBUTION WIDTH CV (test code=RDW) 15.2 % 11.5-14.5 RED CELL DISTRIBUTION WIDTH SD (test code=RDW-SD) 50.3 fL 37.0-54.0 PLATELET COUNT (test code=PLT) 281 x10 3/uL 150-400 MEAN PLATELET VOLUME (test code=MPV) 10.0 fL 7.0-9.0 NEUTROPHIL % (test code=NT%) 65.0 % 56.0-77.0 IMMATURE GRANULOCYTE % (test code=IG%) 1.3 % 0.0-2.0 LYMPHOCYTE % (test code=LY%) 23.9 % 14.0-32.0 MONOCYTE % (test code=MO%) 7.9 % 4.8-9.0 EOSINOPHIL % (test code=EO%) 1.5 % 0.3-3.7 BASOPHIL % (test code=BA%) 0.4 % 0.0-2.0 NUCLEATED RBC % (test code=NRBC%) 0.0 % 0-0 NEUTROPHIL # (test code=NT#) 4.92 x10 3/uL 2.0-7.6 IMMATURE GRANULOCYTE # (test code=IG#) 0.10 x10 3/uL 0.00-0.03 LYMPHOCYTE # (test code=LY#) 1.81 x10 3/uL 1.0-3.8 MONOCYTE # (test code=MO#) 0.60 x10 3/uL 0.1-0.8 EOSINOPHIL # (test code=EO#) 0.11 x10 3/uL 0.0-0.2 BASOPHIL # (test code=BA#) 0.03 x10 3/uL 0.0-0.2 NUCLEATED RBC # (test code=NRBC#) 0.00 x10 3/uL 0.0-0.1 MANUAL DIFF REQUIRED (test code=MDIFF) NO - XR CHEST 1 [id number] 23:16:00 FAX: Sundeep Daniels MD [phone] Arnold: St: [facility] FAX: Sundeep Herbert MD [phone] Name: [facility] [place] : 1985 Age/S: 32/F [address] [place] [address] Unit #: [id number] Loc: [facility] [place] [address] Phys: Sundeep Daniels MD Acct: [id number] Dis Date: Status: REG ER PHONE #: [phone] Exam Date: 06/03/20182312 FAX #: [phone] Reason: cough EXAMS: CPT CODE: [id number] XR CHEST 1 V [id number] PROCEDURE: - XR CHEST 1 V INDICATION: 32 years Female, cough. COMPARISON: None. FINDINGS: The cardiac silhouette and pulmonary vasculature are normal for projection and degree of inspiration. No lobar consolidation, effusion, or pneumothorax. No pleural abnormalities are seen. No acute bony abnormalities. IMPRESSION: No acute intrathoracic abnormalities. SL: JOSE LUIS at [id number] Reported and signed by: Higinio Bellamy M.D. CC: Sundeep Daniels MD; Sundeep Delaney M.D. Technologist: Candace Foley RT(R) Trnscrd Date/Time/By: 06/03/2018 (4216) : By: [email or web address] Orig Print D/T: S: 06/03/2018 (2235) PAGE 1 Signed Report
--- OUTSIDE RECORDS SUMMARY | 2018-10-19 23:55 | XMS REPORT | Summary of Care ---
Author Author [facility] Organization [facility] Address Unknown Phone Unavailable Encounter HQ Jhonny(FIN) [phone] Date(s): 01/24/18 - 01/24/18 [facility] [id number] [place] [address]- Encounter Diagnosis Threatened miscarriage (Discharge Diagnosis) - 01/24/18 Vaginal bleeding (Discharge Diagnosis) - 01/24/18 Threatened (Final) - 01/28/18 8 weeks gestation of (Final) - Discharge Disposition: Home or Self Care Attending Physician: Tony Law DO Vital Signs 1 2 3 Most recent to oldest [Reference Range]: 152.4 cm (01/24/18 5:11 AM) Height 97.8 DegF (01/24/18 7:10 AM) 97.7 DegF (01/24/18 5:11 AM) Temperature Oral [96.4-99.1 DegF] 104/66 mmHg (01/24/18 7:59 AM) 108/60 mmHg (01/24/18 7:10 AM) 119/78 mmHg (01/24/18 5:39 AM) Blood Pressure [90-140/60-90 mmHg] 18 BRMIN (01/24/18 7:59 AM) 18 BRMIN (01/24/18 7:10 AM) 16 BRMIN (01/24/18 5:39 AM) Respiratory Rate [14-20 BRMIN] 66 bpm (01/24/18 7:59 AM) 64 bpm (01/24/18 7:10 AM) 61 bpm (01/24/18 5:39 AM) Peripheral Pulse Rate [60-100 bpm] 72.727 kg (01/24/18 5:11 AM) Weight 31.31 m2 (01/24/18 5:11 AM) Body Mass Index Problem List Condition Effective Dates Status Health Status Informant Bronchitis(Confirmed 02/13/09 Resolved ) Flu(Confirmed) 03/2013 Resolved Vaginal 06/03/13 - 06/03/13 Resolved delivery(Confirmed) Allergies, Adverse Reactions, Alerts No Known Medication Allergies Medications acetaminophen 650 mg, Route: PO, Drug form: TAB, ONCE, Dosing Weight 72.727, kg, Priority: STA T, Start date: 01/24/18 5:22:00 CDT, Stop date: 01/24/18 5:22:00 CDT Start Date: 01/24/18 Stop Date: 01/24/18 Status: Completed Results Most recent to 1 oldest [Reference Range]: Neutrophils # 4.6 K/CMM [1.5-8.1 K/CMM] (01/24/18 6:23 AM) Lymphocytes # 2.1 K/CMM [1.0-5.5 K/CMM] (01/24/18 6:23 AM) Monocytes # [0.0-0.8 0.4 K/CMM K/CMM] (01/24/18 6:23 AM) Eosinophils # 0.1 K/CMM [0.0-0.5 K/CMM] (01/24/18 6:23 AM) Basophils # [0.0-0.2 0.1 K/CMM K/CMM] (01/24/18 6:23 AM) eGFR 134 mL/min/1.73m2 1 *NA* (01/24/18 5:42 AM) ABO/Rh O NEG *Unknown* (01/24/18 5:42 AM) A/G Ratio [0.7-1.6] 0.9 (01/24/18 5:42 AM) Albumin Lvl [3.5-5.0 3.4 g/dL g/dL] *LOW* (01/24/18 5:42 AM) Alk Phos [39-136 56 unit/L unit/L] (01/24/18 5:42 AM) ALT [0-65 unit/L] 19 unit/L (01/24/18 5:42 AM) AGAP [10.0-20.0 12.4 mEq/L mEq/L] (01/24/18 5:42 AM) AST [0-37 unit/L] 29 unit/L (01/24/18 5:42 AM) B/C Ratio [6-25] 13 (01/24/18 5:42 AM) Basophils [0.0-1.0 0.8 % %] (01/24/18 6:23 AM) [place] [address] mIU/mL *NA* (01/24/18 5:42 AM) BUN [7-22 mg/dL] 6 mg/dL *LOW* (01/24/18 5:42 AM) Calcium Lvl 8.8 mg/dL [8.5-10.5 mg/dL] (01/24/18 5:42 AM) Chloride Lvl [95-109 104 mEq/L mEq/L] (01/24/18 5:42 AM) CO2 [24-32 mEq/L] 23 mEq/L *LOW* (01/24/18 5:42 AM) Creatinine Lvl 0.45 mg/dL [0.50-1.40 mg/dL] *LOW* (01/24/18 5:42 AM) Eosinophils [0.0-4.0 1.1 % %] (01/24/18 6:23 AM) Globulin [2.7-4.2 3.9 g/dL g/dL] (01/24/18 5:42 AM) Glucose Lvl [70-99 104 mg/dL mg/dL] *HI* (01/24/18 5:42 AM) Hct [36.0-48.0 %] 34.8 % *LOW* (01/24/18 6:23 AM) Hgb [12.0-16.0 g/dL] 12.3 g/dL (01/24/18 6:23 AM) Potassium Lvl 4.4 mEq/L [3.5-5.1 mEq/L] (01/24/18 5:42 AM) Lipase Lvl [73-393 134 unit/L unit/L] (01/24/18 5:42 AM) Lymphocytes 29.5 % [20.0-40.0 %] (01/24/18 6:23 AM) MCH [27.0-31.0 pg] 32.4 pg *HI* (01/24/18 6:23 AM) MCHC [32.0-36.0 35.3 g/dL g/dL] (01/24/18 6:23 AM) MCV [80.0-98.0 fL] 91.8 fL (01/24/18 6:23 AM) Monocytes [2.0-12.0 5.6 % %] (01/24/18 6:23 AM) MPV [7.4-10.4 fL] 8.7 fL (01/24/18 6:23 AM) Sodium Lvl [135-145 135 mEq/L mEq/L] (01/24/18 5:42 AM) Platelet [133-450 254 K/CMM K/CMM] (01/24/18 6:23 AM) Segs [45.0-75.0 %] 63.0 % (01/24/18 6:23 AM) Total Protein 7.3 g/dL [6.4-8.4 g/dL] (01/24/18 5:42 AM) RBC [4.20-5.40 3.79 M/CMM M/CMM] *LOW* (01/24/18 6:23 AM) RDW [11.5-14.5 %] 13.1 % (01/24/18 6:23 AM) Bili Total [0.2-1.3 0.4 mg/dL mg/dL] (01/24/18 5:42 AM) WBC [3.7-10.4 K/CMM] 7.3 K/CMM (01/24/18 6:23 AM) 1Result Comment: The eGFR is calculated [...] be mul tiplied by the estimated BMI. Immunizations No data available for this section Procedures No data available for this section Social History Social History Type Response Alcohol Type Wine. Frequency: 1-2 times per month. Smoking Status Never smoker; Exposure to Tobacco Smoke None; Cigarette Smoking Last 365 Days No; Reg Smoking Cessation Counseling No entered on: 01/24/18 Assessment and Plan No data available for this section
[2018-10-20] MEDS: DONNATAL/LIDOCAINE/MAALOX 30 ML SUSP PO ONE (00:15)
[2018-10-20] MEDS ORDERED: LIDOCAINE VISC 2% SOLN 15 ML UDC ONE (00:34)
[2018-10-20] MEDS ORDERED: BELLADONNA ALK/PHENOBARBITAL 5 ML UDC ONE (00:34)
[2018-10-20] MEDS: ONDANSETRON HCL 4 MG ORAL DISINTEGRATING TAB PO ONE (01:25)
[2018-10-20] MEDS ORDERED: SODIUM CHLORIDE 0.9% 1000ML 1,000 ML ONE (01:31)
[2018-10-20] MEDS ORDERED: ONDANSETRON HCL INJ 2MG/ML 2ML 2 MG/ML VIAL ONE (01:31)
--- NOTE | 2018-10-20 03:48 | Diagnostic Imaging Report ---
EXAM: Right Upper Quadrant Ultrasound INDICATION: ^[id number] COMPARISON: None. TECHNIQUE: Transverse and longitudinal images of the right upper abdomen were obtained. FINDINGS: Liver: Size: 15.4 cm in the right midclavicular line, normal Appearance: Increased echogenicity, smooth contour Mass: No focal masses Main Portal Vein: 0.7 cm, normal size with hepatopetal flow. Gallbladder: Stones/Sludge: Small gallstones. Wall: 0.2 cm Appearance: No pericholecystic fluid or hydrops. Sonographic East's Sign: Negative Bile Ducts: Intrahepatic Ducts: No dilatation Extrahepatic Ducts: Common bile duct measures 0.5 cm, no dilatation Pancreas: Not well visualized. Right Kidney: Size: 11.1 cm Echogenicity: Normal Parenchymal thickness: Normal Collecting system: No hydronephrosis Stones: None Cyst/Mass: None Free Fluid: No ascites or pleural effusion IMPRESSION: Hepatic steatosis. Cholelithiasis without evidence of cholecystitis. Signed by: Dr. Oliver Egan MD on 10/20/2018 3:44 AM
== END 2018-10-20 04:30 | disposition home or self-care (01) ==
LOC: FSED 23:50
DX: K80.00 Calculus of gallbladder with acute cholecystitis without obstruction (principal)
CPT/HCPCS: 76705; 80053; 81003; 81025; 85025; 99284; J2405; J7030